=== PATIENT | female | born 1940 | race Caucasian/White ===

== ENCOUNTER 2021-09-18 17:43 | Emergency (ER) | payer OTHER ==
[~2021-09-18] VITALS: Ht 175.3 cm; Wt 68.0 kg
[2021-09-18 20:05] LABS: Basophils # (auto) 0 10 ^3/uL (0-0.2); Basophils % (auto) 0.4 % (0.0-2.0); Eosinophils # (auto) 0 10 ^3/uL (0-0.8); Eosinophils % (auto) 0.6 % (0.0-7.0); Hematocrit 36.2 % (36.0-46.0); Hemoglobin 12.2 g/dL (12.2-16.2); Lymphocytes # (auto) 1.7 10 ^3/uL (0.4-5.4); Lymphocytes % (auto) 26.7 % (10.0-50.0); Mean Corpuscular Hemoglobin 28.1 pg (28.0-32.0); Mean Corpuscular Hgb Conc. 33.8 g/dL (32.0-36.0); Mean Corpuscular Volume 83.3 fL (80.0-100.0); Monocytes # (auto) 0.3 10 ^3/uL (0-1.3); Monocytes % (auto) 5.5 % (0.0-12.0); Neutrophils # (auto) 4.2 10 ^3/uL (1.6-8.6); Neutrophils % (auto) 66.8 % (37.0-80.0); Nucleated Red Blood Cells % 0.1 %; Red Blood Cells 4.35 10^6/uL (4.0-5.20); Red Cell Distribution Width 13.9 % (11.8-14.3); White Blood Cell 6.3 10^3/uL (4.4-10.8)
[2021-09-18 20:19] LABS: Albumin 3.1 g/dL (3.4-5.0); Calcium 8.8 mg/dL (8.5-10.1); Potassium 3.6 mmol/L (3.5-5.1)
[2021-09-18 20:23] LABS: Bilirubin, Total 0.6 mg/dL (0.2-1.0); Total Protein 7.4 g/dL (6.4-8.2)
[2021-09-18] MEDS ORDERED: LIDOCAINE 5% TOPICAL PATCH TOP ONE (21:30)
[2021-09-18 22:28] LABS: Urine Bacteria NONE SEEN /hpf (None Seen); Urine Blood Negative /uL (Negative); Urine Mucus FEW (None Seen); Urine WBC <1 /hpf (0 - 5)
[2021-09-18] MEDS ORDERED: IOHEXOL 300 MG/ML 100ML BOTTLE IJ ONE (23:39)
[2021-09-19] MEDS ORDERED: ONDA-144 PO (00:37)
[2021-09-19 01:00] VITALS: BP 165/90
== END 2021-09-19 02:40 | disposition home or self-care (01) ==
LOC: ER 17:43
DX: S42.301A Unspecified fracture of shaft of humerus, right arm, initial encounter for closed fracture (principal); R11.2 Nausea with vomiting, unspecified; Z20.822 Contact with and (suspected) exposure to COVID-19; W18.39XA Other fall on same level, initial encounter; Y93.89 Activity, other specified; Y92.89 Other specified places as the place of occurrence of the external cause; Y99.8 Other external cause status
CPT/HCPCS: 36415; 73030; 74177; 80053; 81001; 84484; 85025; 87426; 93005; 99285; Q9967

== ENCOUNTER 2023-02-21 15:01 | Emergency (ER) | payer OTHER, MEDICAID ==
[~2023-02-21] VITALS: Ht 175.3 cm; Wt 64.9 kg
[~2023-02-21 15:01] MED LIST: ONDA-144 PO
[2023-02-21 18:48] VITALS: PULSE 72; RESP 18; TEMP 98.5; O2SAT 96
[2023-02-21 19:42] VITALS: BP 182/79
[2023-02-21 20:12] VITALS: PULSE 59; RESP 15; O2SAT 97
== END 2023-02-21 19:38 | disposition home or self-care (01) ==
LOC: ER 15:01
DX: T82.594A Other mechanical complication of infusion catheter, initial encounter (principal); I10 Essential (primary) hypertension; E11.9 Type 2 diabetes mellitus without complications; Z79.899 Other long term (current) drug therapy

== ENCOUNTER 2024-01-18 14:32 | Inpatient (IN) | payer OTHER, MEDICAID ==
[~2024-01-18] VITALS: Ht 175.3 cm; Wt 66.4 kg
[2024-01-18 16:05] VITALS: PULSE 81; RESP 12; O2SAT 90
[2024-01-18 16:18] LABS: Urine Bacteria None Seen /hpf (None Seen)
[2024-01-18 16:24] LABS: Basophils # (auto) 0.1 10 ^3/uL (0-0.2); Basophils % (auto) 0.6 % (0.0-2.0); Eosinophils # (auto) 0 10 ^3/uL (0-0.8); Eosinophils % (auto) 0.3 % (0.0-7.0); Hematocrit 40.6 % (36.0-46.0); Hemoglobin 13.6 g/dL (12.2-16.2); Lymphocytes # (auto) 1.2 10 ^3/uL (0.4-5.4); Lymphocytes % (auto) 11.3 % (10.0-50.0); Mean Corpuscular Hemoglobin 30.1 pg (28.0-32.0); Mean Corpuscular Hgb Conc. 33.5 g/dL (32.0-36.0); Mean Corpuscular Volume 89.9 fL (80.0-100.0); Monocytes # (auto) 0.3 10 ^3/uL (0-1.3); Monocytes % (auto) 2.4 % (0.0-12.0); Neutrophils # (auto) 9.2 10 ^3/uL (1.6-8.6); Neutrophils % (auto) 85.4 % (37.0-80.0); Nucleated Red Blood Cells % 0.1 %; Platelet Count (auto) 145 10^3/uL (140-450); Red Blood Cells 4.52 10^6/uL (4.0-5.20); Red Cell Distribution Width 13.5 % (11.8-14.3); White Blood Cell 10.8 10^3/uL (4.4-10.8)
[2024-01-18 16:25] LABS: Urine Blood 2+ /uL (Negative); Urine Clarity Clear (Clear); Urine Color Light-Yellow (Yellow); Urine Protein, UAD TRACE (Negative); Urine Specific Gravity 1.013 (1.001-1.035); Urine Urobilinogen Normal (Negative); Urine WBC 18 /hpf (0 - 5); Urine pH 5.5 (5.0-9.0)
[2024-01-18 16:47] LABS: Alanine Aminotransferase 21 U/L (7-40); Albumin 3.3 g/dL (3.2-4.8); Alkaline Phosphatase 84 U/L (46-116); Anion Gap 4 (5-15); Aspartate Aminotransferase 22 U/L (13-40); BUN/Creatinine Ratio 19.3 (10.0-20.0); Bilirubin, Total 0.7 mg/dL (0.2-1.0); Blood Urea Nitrogen 16 mg/dL (9-23); Calcium 8.7 mg/dL (8.7-10.4); Carbon Dioxide 24 mmol/L (20-30); Chloride 108 mmol/L (98-107); Glucose 189 mg/dL (74-106); Potassium 3.8 mmol/L (3.5-5.1); Sodium 136 mmol/L (136-145)
[2024-01-18] MEDS: cefTRIAXone 1GM/50ML D5W 50 ML IV ONE (19:24)
[2024-01-18 19:30] VITALS: PULSE 72; RESP 18; O2SAT 95
[2024-01-18 19:45] LABS: INR 1.03 (0.9-1.15); Partial Thromboplastin Time 22.8 SEC (24.5-34.5); Prothrombin Time 10.9 sec (9.3-11.8)
[2024-01-18] MEDS: ONDANSETRON HCL 4 MG/2 ML VIAL IV ONE (20:29)
[2024-01-18] MEDS: MORPHINE SULFATE INJ 2 MG/ml SYRG IV ONE (20:30)
[2024-01-18] MEDS ORDERED: ONDANSETRON HCL 4 MG/2 ML VIAL IV PRN (21:30)
[2024-01-18] MEDS ORDERED: DEXTROSE (50%) 50ML SYRG IV PRN (21:30)
[2024-01-18] MEDS ORDERED: ACETAMINOPHEN 325 MG TAB PO PRN (21:30)
[2024-01-18] MEDS: SODIUM CHLORIDE 0.9% 1,000 ML IV SCH (21:45)
[2024-01-18] MEDS: diphenhdrAMINE HCL 50 MG/1 ML VL IV PRN (22:13)
[2024-01-18] MEDS ORDERED: NITROGLYCERIN 0.4 MG SL TAB SL PRN (22:15)
[2024-01-18] MEDS ORDERED: MORPHINE SULFATE INJ 2 MG/ml SYRG IV PRN (22:15)
[2024-01-19] VITALS (18 sets, daily range): BP systolic 117–159; BP diastolic 50–91; PULSE 60–100; RESP 15–20; TEMP 98–100.3; O2SAT 66–100
[2024-01-19] MEDS: InsuLIN REG 1unit/0.01ml Soln (100units/ml) SC SCH (00:09)
[2024-01-19] MEDS: ACCU-CHEK COMFORT CURVE STRIP VI SCH (00:11)
[2024-01-19] MEDS: HYDROcodone-ACET 5/325MG TAB PO PRN (00:30)
[2024-01-19 04:57] LABS: Basophils # (auto) 0 10 ^3/uL (0-0.2); Basophils % (auto) 0.3 % (0.0-2.0); Eosinophils # (auto) 0.1 10 ^3/uL (0-0.8); Eosinophils % (auto) 1.5 % (0.0-7.0); Hematocrit 38.4 % (36.0-46.0); Hemoglobin 13.1 g/dL (12.2-16.2); Lymphocytes # (auto) 0.7 10 ^3/uL (0.4-5.4); Lymphocytes % (auto) 9.2 % (10.0-50.0); Mean Corpuscular Hemoglobin 31.1 pg (28.0-32.0); Mean Corpuscular Hgb Conc. 34.2 g/dL (32.0-36.0); Monocytes # (auto) 0.2 10 ^3/uL (0-1.3); Monocytes % (auto) 2.1 % (0.0-12.0); Neutrophils % (auto) 86.9 % (37.0-80.0); Platelet Count (auto) 139 10^3/uL (140-450); Red Blood Cells 4.23 10^6/uL (4.0-5.20); Red Cell Distribution Width 13.9 % (11.8-14.3)
[2024-01-19 05:23] LABS: Alanine Aminotransferase 16 U/L (7-40); Albumin 3.1 g/dL (3.2-4.8); Alkaline Phosphatase 74 U/L (46-116); Anion Gap 5 (5-15); Aspartate Aminotransferase 17 U/L (13-40); BUN/Creatinine Ratio 17.3 (10.0-20.0); Blood Urea Nitrogen 14 mg/dL (9-23); Calcium 8.6 mg/dL (8.7-10.4); Carbon Dioxide 25 mmol/L (20-30); Chloride 109 mmol/L (98-107); Glucose 137 mg/dL (74-106); Potassium 4.1 mmol/L (3.5-5.1); Sodium 139 mmol/L (136-145)
[2024-01-19 05:24] LABS: Bilirubin, Total 0.7 mg/dL (0.2-1.0); Total Protein 5.7 g/dL (5.7-8.2)
[2024-01-19] MEDS: cefTRIAXone 1GM/50ML D5W 50 ML IV SCH (09:00)
[2024-01-19] MEDS: ENOXAPARIN SOD 40 MG/0.4 ML SYRINGE SC SCH (09:04)
[2024-01-19] MEDS: BUPIVACAINE 0.5% P/F INJ 10 ML VIAL ONE (09:11)
[2024-01-19] MEDS ORDERED: fentaNYL CITRATE 100 MCG/2 ML VL ONE (09:14)
[2024-01-19] MEDS ORDERED: MIDAZOLAM HCL 2MG/2ML 2ml VIAL (1mg/ml) ONE (09:14)
[2024-01-19] MEDS ORDERED: PROPOFOL 10 MG/ML 20 ML IV ONE (09:14)
[2024-01-19] MEDS ORDERED: ONDANSETRON HCL 4 MG/2 ML VIAL ONE (09:14)
[2024-01-19] MEDS ORDERED: ePHEDrine SULFATE 50 MG/ML AMP ONE (09:14)
[2024-01-19] MEDS ORDERED: GLYCOPYRROLATE 0.2 MG/ML 1ML VIAL ONE (09:14)
[2024-01-19] MEDS ORDERED: MORPHINE SULF PF 5 MG/10 ML VIAL ONE (09:14)
[2024-01-19] MEDS ORDERED: KETAMINE 50mg/ML 1ml syringe ONE (09:14)
[2024-01-19] MEDS: ceFAZolin 2 GM/D5W50ml 50 ML IV ONE (10:27)
[2024-01-19] MEDS: BUPIVACAINE 0.25% INJ 50ML VIAL ONE (10:27)
[2024-01-19] MEDS ORDERED: NALOXONE HCL 0.4 MG/ML VIAL IV PRN (11:45)
[2024-01-19] MEDS ORDERED: DexAMETHasone SOD PHOS 10MG/1ML VIAL INJ IV PRN (11:45)
[2024-01-19] MEDS: ACCU-CHEK COMFORT CURVE STRIP VI ONE (11:45)
[2024-01-19] MEDS ORDERED: diphenhdrAMINE HCL 50 MG/1 ML VL IV PRN (11:45)
[2024-01-19] MEDS: ceFAZolin 1GM/50ML 50 ML IV SCH (14:00)
[2024-01-19] MEDS ORDERED: ATOR-507 PO (17:56)
[2024-01-19] MEDS ORDERED: DONE1TAB88 PO (17:56)
[2024-01-19] MEDS ORDERED: AMLO1TAB22 PO (17:56)
[2024-01-19] MEDS ORDERED: MEMA1TAB5 PO (17:56)
[2024-01-19] MEDS ORDERED: LISI10TA34 PO (17:56)
[2024-01-19] MEDS ORDERED: SERT-206 PO (17:56)
[2024-01-19] MEDS ORDERED: INS7030I SC (17:56)
[2024-01-20] VITALS (26 sets, daily range): BP systolic 102–163; BP diastolic 51–77; PULSE 59–74; RESP 15–22; TEMP 98.1–98.8; O2SAT 70–98
[2024-01-20 04:52] LABS: Basophils # (auto) 0 10 ^3/uL (0-0.2); Basophils % (auto) 0.5 % (0.0-2.0); Eosinophils # (auto) 0.2 10 ^3/uL (0-0.8); Eosinophils % (auto) 3.1 % (0.0-7.0); Hematocrit 34.9 % (36.0-46.0); Hemoglobin 11.8 g/dL (12.2-16.2); Lymphocytes # (auto) 0.7 10 ^3/uL (0.4-5.4); Lymphocytes % (auto) 14.3 % (10.0-50.0); Mean Corpuscular Hemoglobin 30.4 pg (28.0-32.0); Mean Corpuscular Hgb Conc. 33.9 g/dL (32.0-36.0); Mean Corpuscular Volume 89.9 fL (80.0-100.0); Monocytes # (auto) 0.2 10 ^3/uL (0-1.3); Monocytes % (auto) 4.2 % (0.0-12.0); Neutrophils % (auto) 77.9 % (37.0-80.0); Nucleated Red Blood Cells % 0.1 %; Platelet Count (auto) 96 10^3/uL (140-450); Red Blood Cells 3.89 10^6/uL (4.0-5.20); Red Cell Distribution Width 14.1 % (11.8-14.3); White Blood Cell 5.1 10^3/uL (4.4-10.8)
[2024-01-20 05:09] LABS: Alanine Aminotransferase 9 U/L (7-40); Albumin 2.8 g/dL (3.2-4.8); Alkaline Phosphatase 64 U/L (46-116); Anion Gap 3 (5-15); Aspartate Aminotransferase 12 U/L (13-40); BUN/Creatinine Ratio 13.8 (10.0-20.0); Blood Urea Nitrogen 11 mg/dL (9-23); Calcium 8.5 mg/dL (8.7-10.4); Carbon Dioxide 26 mmol/L (20-30); Chloride 108 mmol/L (98-107); Glucose 136 mg/dL (74-106); Magnesium 1.8 mg/dL (1.6-2.6); Potassium 3.9 mmol/L (3.5-5.1); Sodium 137 mmol/L (136-145)
[2024-01-20 05:10] LABS: Bilirubin, Total 0.4 mg/dL (0.2-1.0); Total Protein 5.2 g/dL (5.7-8.2)
[2024-01-20] MEDS: KETOROLAC TROMETH 30 MG/ML 1ML VIAL IV PRN (09:36)
[2024-01-20] MEDS: ONDANSETRON HCL 4 MG/2 ML VIAL IV PRN (18:30)
[2024-01-21] VITALS (8 sets, daily range): BP systolic 146–172; BP diastolic 48–92; PULSE 65–88; RESP 17–22; TEMP 98.2–98.7; O2SAT 90–99
[2024-01-21] MEDS: PANTOPRAZOLE 40 MG TAB PO SCH (06:33)
[2024-01-21 07:25] LABS: Basophils # (auto) 0 10 ^3/uL (0-0.2); Basophils % (auto) 0.6 % (0.0-2.0); Eosinophils # (auto) 0.2 10 ^3/uL (0-0.8); Eosinophils % (auto) 4.4 % (0.0-7.0); Hematocrit 34.2 % (36.0-46.0); Hemoglobin 11.6 g/dL (12.2-16.2); Lymphocytes # (auto) 0.6 10 ^3/uL (0.4-5.4); Lymphocytes % (auto) 12.4 % (10.0-50.0); Mean Corpuscular Hemoglobin 30.8 pg (28.0-32.0); Mean Corpuscular Volume 90.7 fL (80.0-100.0); Monocytes # (auto) 0.2 10 ^3/uL (0-1.3); Monocytes % (auto) 4.2 % (0.0-12.0); Neutrophils % (auto) 78.4 % (37.0-80.0); Nucleated Red Blood Cells % 0.1 %; Platelet Count (auto) 87 10^3/uL (140-450); Red Blood Cells 3.77 10^6/uL (4.0-5.20); Red Cell Distribution Width 13.7 % (11.8-14.3); White Blood Cell 5.1 10^3/uL (4.4-10.8)
[2024-01-21 07:50] LABS: Anion Gap 6 (5-15); Aspartate Aminotransferase 14 U/L (13-40); BUN/Creatinine Ratio 15.9 (10.0-20.0); Blood Urea Nitrogen 11 mg/dL (9-23); Calcium 8.6 mg/dL (8.7-10.4); Carbon Dioxide 25 mmol/L (20-30); Chloride 106 mmol/L (98-107); Glucose 154 mg/dL (74-106); Magnesium 1.8 mg/dL (1.6-2.6); Potassium 3.7 mmol/L (3.5-5.1); Sodium 137 mmol/L (136-145)
[2024-01-21 07:51] LABS: Bilirubin, Total 0.6 mg/dL (0.2-1.0); Total Protein 5.4 g/dL (5.7-8.2)
[2024-01-21 07:52] LABS: Alanine Aminotransferase < 9 U/L (7-40)
[2024-01-21 08:00] LABS: Alkaline Phosphatase 66 U/L (46-116)
[2024-01-21] MEDS: ENOXAPARIN SOD 30 MG/0.3 ML SYRINGE SC SCH (09:11)
[2024-01-21] MEDS: LISINOPRIL 5 MG TAB PO ONE (14:35)
[2024-01-21] MEDS: amLODIPine BESYLATE 5 MG TAB PO ONE (14:36)
[2024-01-21] MEDS: ATORVASTATIN 20 MG TAB PO SCH (21:26)
[2024-01-21] MEDS: MEMANTINE HCL 5 MG TAB PO SCH (21:26)
[2024-01-21] MEDS: DONEPEZIL HYDROCHLORIDE 5 MG TAB PO SCH (21:26)
[2024-01-22] VITALS (7 sets, daily range): BP systolic 145–156; BP diastolic 55–71; PULSE 54–84; RESP 14–20; TEMP 97.8–98.7; O2SAT 95–99
[2024-01-22] MEDS: DOCUSATE SOD 100 MG CAP PO PRN (05:49)
[2024-01-22] MEDS: amLODIPine BESYLATE 5 MG TAB PO SCH (12:25)
[2024-01-22] MEDS: SERTRALINE HCL 50 MG TAB PO SCH (12:26)
[2024-01-22] MEDS: LISINOPRIL 5 MG TAB PO SCH (12:26)
[2024-01-23] VITALS (7 sets, daily range): BP systolic 134–158; BP diastolic 60–74; PULSE 64–74; RESP 16–18; TEMP 97.7–98.1; O2SAT 98–99
[2024-01-24] VITALS (9 sets, daily range): BP systolic 138–163; BP diastolic 62–70; PULSE 63–90; RESP 16–20; TEMP 97.9–98.3; O2SAT 97–99
[2024-01-24] MEDS ORDERED: HYDR1TAB97 PO (10:48)
[2024-01-24] MEDS ORDERED: NITR-87 PO (10:48)
[2024-01-24] MEDS: NITROFURANTOIN 100 mg CAP PO ONE (11:06)
[2024-01-24] MEDS: NITROFURANTOIN 100 mg CAP PO SCH (21:24)
[2024-01-25] VITALS (9 sets, daily range): BP systolic 141–169; BP diastolic 53–68; PULSE 60–79; RESP 15–20; TEMP 97.2–98.7; O2SAT 94–100
[2024-01-25] MEDS ORDERED: ENOX30IN5 SC (20:40)
[2024-01-26] VITALS (9 sets, daily range): BP systolic 111–153; BP diastolic 52–74; PULSE 60–96; RESP 14–18; TEMP 96–99; O2SAT 94–100
[2024-01-26 11:21] LABS: Basophils # (auto) 0 10 ^3/uL (0-0.2); Basophils % (auto) 0.8 % (0.0-2.0); Eosinophils # (auto) 0.2 10 ^3/uL (0-0.8); Eosinophils % (auto) 3.3 % (0.0-7.0); Hematocrit 33.4 % (36.0-46.0); Hemoglobin 11.6 g/dL (12.2-16.2); Lymphocytes # (auto) 1.4 10 ^3/uL (0.4-5.4); Lymphocytes % (auto) 26.8 % (10.0-50.0); Mean Corpuscular Hgb Conc. 34.8 g/dL (32.0-36.0); Mean Corpuscular Volume 89.2 fL (80.0-100.0); Monocytes # (auto) 0.4 10 ^3/uL (0-1.3); Neutrophils # (auto) 3.3 10 ^3/uL (1.6-8.6); Neutrophils % (auto) 62.1 % (37.0-80.0); Nucleated Red Blood Cells % 0.1 %; Platelet Count (auto) 235 10^3/uL (140-450); Red Blood Cells 3.74 10^6/uL (4.0-5.20); Red Cell Distribution Width 13.3 % (11.8-14.3); White Blood Cell 5.4 10^3/uL (4.4-10.8)
[2024-01-26 11:59] LABS: Alanine Aminotransferase 19 U/L (7-40); Albumin 3.2 g/dL (3.2-4.8); Alkaline Phosphatase 86 U/L (46-116); Aspartate Aminotransferase 25 U/L (13-40); BUN/Creatinine Ratio 16.9 (10.0-20.0); Bilirubin, Total 0.5 mg/dL (0.2-1.0); Blood Urea Nitrogen 12 mg/dL (9-23); Calcium 9.1 mg/dL (8.7-10.4); Glucose 187 mg/dL (74-106); Magnesium 1.8 mg/dL (1.6-2.6); Total Protein 6.2 g/dL (5.7-8.2)
[2024-01-26] MEDS: amLODIPine BESYLATE 5 MG TAB PO SCH (12:26)
[2024-01-26] MEDS: LISINOPRIL 5 MG TAB PO SCH (12:27)
[2024-01-26 12:30] LABS: Chloride 102 mmol/L (98-107)
[2024-01-26 12:31] LABS: Sodium 134 mmol/L (136-145)
[2024-01-26 12:33] LABS: Anion Gap 3 (5-15); Carbon Dioxide 29 mmol/L (20-30)
[2024-01-27 07:23] VITALS: BP 128/59; PULSE 86; RESP 16; TEMP 98.3; O2SAT 96
== END 2024-01-26 20:30 | disposition home health service (06) | DRG 481 ==
LOC: EDBD 14:32 → EDUNIT# 14:32 → ER 14:32 → TELE 22:10 → TELE-WESTW 01-19 01:48 → TELE-EAST 01-25 21:35 → EAST 01-25 21:53
PROVIDERS: ADMIT Nurse Practitioner Family; ATTEND Internal Medicine Geriatric Medicine
PROC: 0QS704Z Reposition Left Upper Femur with Internal Fixation Device, Open Approach (ICD-10-PCS; principal; 2024-01-19 10:27)
DX: S72.142A Displaced intertrochanteric fracture of left femur, initial encounter for closed fracture (principal); N39.0 Urinary tract infection, site not specified; I10 Essential (primary) hypertension; K57.30 Diverticulosis of large intestine without perforation or abscess without bleeding; F03.90 Unspecified dementia, unspecified severity, without behavioral disturbance, psychotic disturbance, mood disturbance, and anxiety; E11.9 Type 2 diabetes mellitus without complications; S72.012A Unspecified intracapsular fracture of left femur, initial encounter for closed fracture; W18.39XA Other fall on same level, initial encounter; Y93.89 Activity, other specified; Y92.89 Other specified places as the place of occurrence of the external cause; Y99.8 Other external cause status
CPT/HCPCS: 36415; 70450; 71045; 72170; 73502; 74176; 76000; 80053; 81001; 82962; 83690; 83735; 84484; 85025; 85610; 85730; 86850; 86900; 86901; 87086; 87088; 87186; 93005; 93306; 96365; 96375; 97110; 97116; 97163; 97530; G0378; J1815; J1885; J2250; J2405; J2704; J3490

== ENCOUNTER 2024-01-30 17:18 | Inpatient (IN) | payer OTHER, MEDICAID ==
[~2024-01-30] VITALS: Ht 165.1 cm; Wt 69.7 kg
[~2024-01-30 17:18] MED LIST changes: +AMLO1TAB22 PO; +ATOR-507 PO; +DONE1TAB88 PO; +ENOX30IN5 SC; +HYDR1TAB97 PO; +INS7030I SC; +LISI10TA34 PO; +MEMA1TAB5 PO; +NITR-87 PO; -ONDA-144 PO; +SERT-206 PO
[2024-01-30 18:25] LABS: Basophils # (auto) 0.1 10 ^3/uL (0-0.2); Basophils % (auto) 0.9 % (0.0-2.0); Eosinophils # (auto) 0.1 10 ^3/uL (0-0.8); Eosinophils % (auto) 2.1 % (0.0-7.0); Hematocrit 32.9 % (36.0-46.0); Hemoglobin 11.4 g/dL (12.2-16.2); Lymphocytes # (auto) 1.5 10 ^3/uL (0.4-5.4); Lymphocytes % (auto) 22.6 % (10.0-50.0); Mean Corpuscular Hemoglobin 30.5 pg (28.0-32.0); Mean Corpuscular Hgb Conc. 34.5 g/dL (32.0-36.0); Mean Corpuscular Volume 88.2 fL (80.0-100.0); Monocytes # (auto) 0.3 10 ^3/uL (0-1.3); Monocytes % (auto) 4.8 % (0.0-12.0); Neutrophils # (auto) 4.7 10 ^3/uL (1.6-8.6); Neutrophils % (auto) 69.6 % (37.0-80.0); Nucleated Red Blood Cells % 0.1 %; Platelet Count (auto) 337 10^3/uL (140-450); Red Blood Cells 3.73 10^6/uL (4.0-5.20); Red Cell Distribution Width 13.5 % (11.8-14.3); White Blood Cell 6.7 10^3/uL (4.4-10.8)
[2024-01-30 18:39] LABS: Alanine Aminotransferase 26 U/L (7-40); Albumin 3.3 g/dL (3.2-4.8); Alkaline Phosphatase 98 U/L (46-116); Anion Gap 8 (5-15); Aspartate Aminotransferase 23 U/L (13-40); BUN/Creatinine Ratio 18.7 (10.0-20.0); Blood Urea Nitrogen 14 mg/dL (9-23); Calcium 8.7 mg/dL (8.7-10.4); Carbon Dioxide 22 mmol/L (20-30); Chloride 106 mmol/L (98-107); Glucose 211 mg/dL (74-106); Potassium 4.1 mmol/L (3.5-5.1); Sodium 136 mmol/L (136-145)
[2024-01-30 18:40] LABS: Bilirubin, Total 0.4 mg/dL (0.2-1.0)
[2024-01-30 18:42] LABS: Urine Bacteria None Seen /hpf (None Seen)
[2024-01-30 18:46] VITALS: PULSE 67; RESP 20; O2SAT 96
[2024-01-30] MEDS ORDERED: DEXTROSE (50%) 50ML SYRG IV PRN (19:00)
[2024-01-30] MEDS ORDERED: DOCUSATE SOD 100 MG CAP PO PRN (19:00)
[2024-01-30] MEDS ORDERED: ONDANSETRON HCL 4 MG/2 ML VIAL IV PRN (19:00)
[2024-01-30] MEDS ORDERED: hydrALAZINE HCL 20 MG/ML VL IV PRN (19:00)
[2024-01-30] MEDS: MORPHINE SULFATE 4 MG/ML SYR/VIAL IV ONE (19:04)
[2024-01-30] MEDS: ONDANSETRON HCL 4 MG/2 ML VIAL IV ONE (19:05)
[2024-01-30] MEDS: SODIUM CHLORIDE 0.9% 1,000 ML IV SCH (19:14)
[2024-01-30 19:21] LABS: Urine Blood 3+ /uL (Negative); Urine Clarity Clear (Clear); Urine Color Yellow (Yellow); Urine Protein, UAD TRACE (Negative); Urine Specific Gravity 1.012 (1.001-1.035); Urine Urobilinogen Normal (Negative); Urine WBC 7 /hpf (0 - 5)
[2024-01-30] MEDS ORDERED: NITROGLYCERIN 0.4 MG SL TAB SL PRN (19:45)
[2024-01-30] MEDS ORDERED: MORPHINE SULFATE INJ 2 MG/ml SYRG IV PRN (19:45)
[2024-01-30] MEDS: ATORVASTATIN 20 MG TAB PO SCH (22:35)
[2024-01-30] MEDS: DONEPEZIL HYDROCHLORIDE 5 MG TAB PO SCH (22:35)
[2024-01-30] MEDS: HYDROcodone-ACET 5/325MG TAB PO PRN (22:35)
[2024-01-30] MEDS: InsuLIN REG 1unit/0.01ml Soln (100units/ml) SC SCH (22:48)
[2024-01-30] MEDS: ACCU-CHEK COMFORT CURVE STRIP VI SCH (22:57)
[2024-01-31] VITALS (9 sets, daily range): BP systolic 116–140; BP diastolic 49–60; PULSE 59–77; RESP 18–22; TEMP 97.9–98.4; O2SAT 94–98
[2024-01-31] MEDS ORDERED: NITR100C6 PO (02:35)
[2024-01-31] MEDS ORDERED: SERT-289 PO (02:35)
[2024-01-31] MEDS ORDERED: AMLO1TAB23 PO (02:35)
[2024-01-31] MEDS ORDERED: NITR1CAP36 PO (02:35)
[2024-01-31] MEDS ORDERED: ATOR40TA52 PO (02:35)
[2024-01-31] MEDS: InsuLIN REG 1unit/0.01ml Soln (100units/ml) SC SCH (06:29)
[2024-01-31 06:46] LABS: Alanine Aminotransferase 25 U/L (7-40); Albumin 3.1 g/dL (3.2-4.8); Alkaline Phosphatase 91 U/L (46-116); Anion Gap 7 (5-15); Aspartate Aminotransferase 23 U/L (13-40); BUN/Creatinine Ratio 19.4 (10.0-20.0); Blood Urea Nitrogen 13 mg/dL (9-23); Calcium 8.7 mg/dL (8.7-10.4); Carbon Dioxide 25 mmol/L (20-30); Chloride 107 mmol/L (98-107); Glucose 149 mg/dL (74-106); Sodium 139 mmol/L (136-145)
[2024-01-31 06:47] LABS: Bilirubin, Total 0.4 mg/dL (0.2-1.0); Total Protein 5.7 g/dL (5.7-8.2)
[2024-01-31 07:11] LABS: Basophils # (auto) 0.1 10 ^3/uL (0-0.2); Basophils % (auto) 0.8 % (0.0-2.0); Eosinophils # (auto) 0.2 10 ^3/uL (0-0.8); Eosinophils % (auto) 3.4 % (0.0-7.0); Hematocrit 31.4 % (36.0-46.0); Hemoglobin 11.1 g/dL (12.2-16.2); Lymphocytes # (auto) 1.7 10 ^3/uL (0.4-5.4); Mean Corpuscular Hemoglobin 31.5 pg (28.0-32.0); Mean Corpuscular Hgb Conc. 35.3 g/dL (32.0-36.0); Mean Corpuscular Volume 89.2 fL (80.0-100.0); Monocytes # (auto) 0.3 10 ^3/uL (0-1.3); Monocytes % (auto) 5.4 % (0.0-12.0); Neutrophils # (auto) 4.1 10 ^3/uL (1.6-8.6); Neutrophils % (auto) 64.4 % (37.0-80.0); Platelet Count (auto) 336 10^3/uL (140-450); Red Blood Cells 3.52 10^6/uL (4.0-5.20); Red Cell Distribution Width 13.6 % (11.8-14.3); White Blood Cell 6.4 10^3/uL (4.4-10.8)
[2024-01-31] MEDS: MEMANTINE HCL 5 MG TAB PO SCH (09:58)
[2024-01-31] MEDS: amLODIPine BESYLATE 5 MG TAB PO SCH (09:59)
[2024-01-31] MEDS: ASPirin 81 mg TAB PO SCH (09:59)
[2024-01-31] MEDS ORDERED: NITR50CA24 PO (13:22)
[2024-01-31] MEDS: ACETAMINOPHEN 325 MG TAB PO PRN (21:47)
[2024-02-01] VITALS (7 sets, daily range): BP systolic 126–155; BP diastolic 47–57; PULSE 64–74; RESP 16–21; TEMP 97.5–98.4; O2SAT 90–97
[2024-02-02] VITALS (8 sets, daily range): BP systolic 130–156; BP diastolic 45–63; PULSE 55–80; RESP 14–20; TEMP 97.7–98.6; O2SAT 63–98
[2024-02-03] VITALS (8 sets, daily range): BP systolic 122–156; BP diastolic 45–73; PULSE 52–69; RESP 12–21; TEMP 98.2–98.3; O2SAT 95–99
[2024-02-04] VITALS (8 sets, daily range): BP systolic 127–156; BP diastolic 52–63; PULSE 56–98; RESP 14–18; TEMP 98–98.7; O2SAT 93–99
[2024-02-04 14:53] LABS: Basophils # (auto) 0.1 10 ^3/uL (0-0.2); Basophils % (auto) 0.6 % (0.0-2.0); Eosinophils # (auto) 0.1 10 ^3/uL (0-0.8); Eosinophils % (auto) 1.4 % (0.0-7.0); Hematocrit 33.6 % (36.0-46.0); Hemoglobin 11.6 g/dL (12.2-16.2); Lymphocytes # (auto) 1.7 10 ^3/uL (0.4-5.4); Mean Corpuscular Hemoglobin 30.7 pg (28.0-32.0); Mean Corpuscular Hgb Conc. 34.5 g/dL (32.0-36.0); Mean Corpuscular Volume 89.2 fL (80.0-100.0); Monocytes # (auto) 0.4 10 ^3/uL (0-1.3); Monocytes % (auto) 4.3 % (0.0-12.0); Neutrophils # (auto) 6.3 10 ^3/uL (1.6-8.6); Neutrophils % (auto) 73.7 % (37.0-80.0); Platelet Count (auto) 442 10^3/uL (140-450); Red Blood Cells 3.77 10^6/uL (4.0-5.20); Red Cell Distribution Width 13.9 % (11.8-14.3); White Blood Cell 8.6 10^3/uL (4.4-10.8)
[2024-02-04 15:13] LABS: Alanine Aminotransferase 19 U/L (7-40); Albumin 3.4 g/dL (3.2-4.8); Alkaline Phosphatase 113 U/L (46-116); Anion Gap 10 (5-15); Aspartate Aminotransferase 16 U/L (13-40); Blood Urea Nitrogen 20 mg/dL (9-23); Carbon Dioxide 23 mmol/L (20-30); Chloride 103 mmol/L (98-107); Glucose 213 mg/dL (74-106); Sodium 136 mmol/L (136-145)
[2024-02-04 15:14] LABS: Bilirubin, Total 0.3 mg/dL (0.2-1.0); Total Protein 6.2 g/dL (5.7-8.2)
[2024-02-04] MEDS: hydrOXYzine 25 MG TAB or CAP PO PRN (21:10)
[2024-02-05 01:00] VITALS: BP 154/73; PULSE 66; RESP 18; TEMP 98.6; O2SAT 98
[2024-02-05 05:00] VITALS: BP 141/64; PULSE 58; RESP 18; TEMP 97.9; O2SAT 97
[2024-02-05 08:00] VITALS: PULSE 55; PULSE 62; RESP 16; O2SAT 95
[2024-02-05 09:00] VITALS: BP 150/66; PULSE 78; RESP 18; TEMP 98.4; O2SAT 97
[2024-02-05 13:00] VITALS: BP 116/49; PULSE 64; RESP 22; TEMP 98.2; O2SAT 98
[2024-02-05 17:00] VITALS: BP 135/62; PULSE 58; RESP 18; TEMP 98.2; O2SAT 98
== END 2024-02-05 17:00 | DRG 948 ==
LOC: ER 17:18 → EDBD 17:18 → TELE 19:33 → TELE-WESTW 19:33 → UNDODISIN 01-31 17:46 → TELE-WESTW 02-01 00:15
PROVIDERS: ADMIT Nurse Practitioner Family; ATTEND Internal Medicine Geriatric Medicine
DX: R53.1 Weakness (principal); E11.65 Type 2 diabetes mellitus with hyperglycemia; S72.002G Fracture of unspecified part of neck of left femur, subsequent encounter for closed fracture with delayed healing; I10 Essential (primary) hypertension; F03.90 Unspecified dementia, unspecified severity, without behavioral disturbance, psychotic disturbance, mood disturbance, and anxiety; Z79.4 Long term (current) use of insulin; Z79.899 Other long term (current) drug therapy
CPT/HCPCS: 36415; 80053; 81001; 82962; 85025; 87081; 87086; 97110; 97116; 97163; 97530; G0378; J1815; J2405

== ENCOUNTER 2024-07-31 10:18 | Emergency (ER) | payer OTHER, MEDICAID ==
[~2024-07-31] VITALS: Ht 175.3 cm; Wt 59.0 kg
[~2024-07-31 10:18] MED LIST changes: +AMLO1TAB23 PO; +ATOR40TA52 PO; +NITR100C6 PO; +NITR1CAP36 PO; +NITR50CA24 PO; +SERT-289 PO
--- NOTE | 2024-07-31 11:10 | ED.PDOC ---
History of Present Illness HPI Comments This is an 84-year-old female who comes in with chief complaint of needing a midline. The patient states that she had a midline placed and did accidentally came out. She is being treated with meropenem for a chronic UTI. She received approximately 2-1/2 days of IV antibiotics. The midline came out and then a visiting nurse came and placed a regular IV in but unfortunately that came out last night as well. The patient denies any fever or chills. She is accompanied in the emergency department's by her family member. She does have a history of chronic UTI is which she was receiving the infusion of antibiotics 3 times a day. Patient was rolled in a wheelchair and she is a poor historian. Chief Complaint: Tube Replacement Time Seen by MD: 10:54 Primary Care Provider: UNKNOWN NAME Reviewed Notes: Nurses Notes, Medications, Allergies (No allergies to medications) Allergies: Coded Allergies: NO KNOWN ALLERGIES (Unverified , 01/18/24) Home Meds Active Scripts Nitrofurantoin (Macrodantin) 50 Mg Cap, 1 CAP PO BID, #14 CAP Prov:MEEK MONIQUE MD 01/31/24 Enoxaparin Sodium (Enoxaparin Sodium) 30 Mg/0.3 Ml Inj, 30 MG SC DAILY for 21 Days, #21 INJ Prov:CLAUDIA ARCHIBALD MD 01/25/24 Hydrocodone-Acetaminophen (Hydrocodone/Acetaminophen 5-325 mg) 1 Tab Tab, 1 TAB PO Q6HP PRN, #20 TAB Prov:CLAUDIA ARCHIBALD MD 01/24/24 Nitrofurantoin Monohydrate Mac (Macrobid) 100 Mg Cap, 100 MG PO BID for 7 Days, #14 CAP Prov:CLAUDIA ARCHIBALD MD 01/24/24 Reported Medications Nitrofurantoin (Nitrofurantoin Macrocryst) 100 Mg Cap, 1 CAP PO BID 01/31/24 Amlodipine Besylate (Amlodipine Besylate) 10 Mg Tab, TAB PO 01/31/24 Atorvastatin Calcium (ATORVASTATIN CALCIUM) 40 Mg Tab, 1 TAB PO DAILY 01/31/24 Nitrofurantoin Monohyd Macro (Nitrofurantoin Monohydrat) 100 Mg Cap, 1 CAP PO BID 01/31/24 Sertraline HCl (Sertraline HCl) 50 Mg Tab, 1 TAB PO DAILY 01/31/24 Sertraline Hcl (Sertraline Hcl) 50 Mg Tab, 50 MG PO DAILY, MG 01/19/24 Lisinopril (Lisinopril) 10 Mg Tab, 10 MG PO DAILY, MG 01/19/24 Donepezil Hydrochloride (DONEPEZIL HCL) 10 Mg Tab, 10 MG PO DAILY, MG 01/19/24 Insulin Isophane & Reg (Human) (Humulin 70/30 (70-30) 100 Unit/ml) 1 Units/0.01 Ml Inj, 14 UNITS SC BIDAC, INJ INJECT 14 UNITS UNDER THE SKIN 2 TIMES DAILY (BEFORE MEALS) 01/19/24 Atorvastatin Calcium (Lipitor) 40 Mg Tab, 40 MG PO QPM, TAB 01/19/24 Amlodipine Besylate (Amlodipine Besylate) 5 Mg Tab, 5 MG PO DAILY, MG 01/19/24 Memantine Hydrochloride (Memantine HCl) 10 Mg Tab, 10 MG PO BID, TAB 01/19/24 Information Source: Relative Mode of Arrival: Wheelchair Severity: Moderate Timing: Days Duration: Since onset Prehospital treatment: None Location: Previous midline in the left arm Past Medical History PAST MEDICAL HISTORY: Cancer (Cancer of the cecum), Dementia, DM, High Lipids, HTN, UTI'S Surgical History: Hysterectomy Surgical History (Other): Colectomy, cataract surgery, right knee surgery, bilateral hip surgery CUTCH CLEANER History: No Pertinent CUTCH CLEANER History Family History Family History: Reviewed,noncontributory to illness Social History Smoker: Non-Smoker Alcohol: Denies ETOH Use Drugs: Denies Drug Use Lives In: Home Constitutional: denies: chills, diaphoresis, fatigue, fever, malaise, sweats, weakness, others EENTM: denies: blurred vision, double vision, ear bleeding, ear discharge, ear drainage, ear pain, ear ringing, eye pain, eye redness, hearing loss, mouth pain, mouth swelling, nasal discharge, nose bleeding, nose congestion, nose pain, photophobia, tearing, throat pain, throat swelling, voice changes, others Respiratory: denies: cough, hemoptysis, orthopnea, SOB at rest, shortness of breath, SOB with excertion, stridor, wheezing, others Cardiovascular: denies: chest pain, dizzy spells, diaphoresis, Dyspnea on exertion, edema, irregular heart beat, left arm pain, lightheadedness, palpitations, PND, syncope, others Gastrointestinal: denies: abdomen distended, abdominal pain, blood streaked bowels, constipated, diarrhea, dysphagia, difficulty swallowing, hematemesis, melena, nausea, poor appetite, poor fluid intake, rectal bleeding, rectal pain, vomiting, others Genitourinary: denies: abnormal vagina bleeding, burning, dyspareunia, dysuria, flank pain, frequency, hematuria, incontinence, pain, , vagina discharge, urgency, others Neurological: denies: dizziness, fainting, headache, left sided numbness, left sided weakness, numbness, paresthesia, pre-existing deficit, right sided numbness, right sided weakness, seizure, speech problems, tingling, tremors, weakness, others Musculoskeletal: denies: back pain, gout, joint pain, joint swelling, muscle pain, muscle stiffness, neck pain, others Integumetry: reports: others (Need of a midline); denies: bruises, change in color, change in hair/nails, dryness, laceration, lesions, lumps, rash, wounds Allergic/Immunocompromised: denies: Difficulty Healing, Frequent Infections, Hives, Itching, others Hematologic/Lymphatic: denies: anemia, blood clots, easy bleeding, easy bruising, swollen glands, others Endocrine: denies: excessive hunger, excessive sweating, excessive thirst, excessive urination, flushing, intolerance to cold, intolerance to heat, unexplained weight gain, unexplained weight loss, others Psychiatric: denies: anxiety, bipolar disorder, depression, hopeless, panic disorder, schizophrenia, sleepless, suicidal, others Physical Exam General Appearance: Mild Distress, Thin HEENT: Normal ENT Inspection, Pharynx Normal, TMs Normal Neck: Full Range of Motion, Non-Tender, Normal, Normal Inspection Respiratory: Chest Non-Tender, Lungs Clear, No Accessory Muscle Use, No Respiratory Distress, Normal Breath Sounds Cardiovascular: No Edema, No JVD, No Murmur, No Gallop, Normal Peripheral Pulses, Regular Rate/Rhythm Breast Exam: Deferred Gastrointestinal: No Organomegaly, Non Tender, No Pulsatile Mass, Normal Bowel Sounds, Soft Genitalia: Deferred Pelvic: Deferred Rectal: Deferred Extremities: No calf tenderness, Normal capillary refill, No pedal edema Musculoskeletal : Apperance: Normal Neurologic: hook up driver II-XII nml as Tested, Motor Weakness, Normal Affect, Normal Mood, No Sensory Deficits Cerebellar Function: Unable to Test Reflexes: Normal Skin: Dry, Pallor, Warm Lymphatic: No Adenopathy Was a procedure done? Was a procedure done?: No Differential Dx Considerations may include: Displaced midline, UTI X-Ray, Labs, Meds, VS Vital Signs Date Time Temp Pulse Resp B/P (MAP) Pulse Ox O2 Delivery O2 Flow Rate FiO2 07/31/24 11:28 98.6 70 16 118/60 (79) 99 Patient had a midline placed to the left upper extremity The midline team came in placed it The patient was being discharged The patient will follow up with the primary care doctor The patient will return to the emergency department's condition worsens. Images Reviewed?: Images reviewed and evaluated by me Time of 1ST Reevaluation: 11:10 Reevaluation 1ST: Unchanged Patient Education/Counseling: Diagnosis, Treatment, Prognosis, Need For Follow Up Family Education/Counseling: Diagnosis, Treatment, Prognosis, Need For Follow Up Departure 1 Departure Time of Disposition: 15:29 Impression: Primary Impression: Status post PICC central line placement Additional Impression: UTI (urinary tract infection) Qualified Codes: N30.01 - Acute cystitis with hematuria Disposition: HOME / SELF CARE / HOMELESS Condition: Fair Discharged With: Self Critical Care Note Critical Care Time?: No Stability Stability form required: No Heart Score Heart Score: Heart Score Response (Comments) Value History N/A 0 EKG N/A 0 Age N/A 0 Risk Factors N/A 0 Troponin N/A 0 Total 0 PRANEETH TRACEY MD Jul 31, 2024 11:10
[2024-07-31 16:17] VITALS: BP 134/76; PULSE 74; RESP 16; TEMP 98; O2SAT 96
== END 2024-07-31 16:19 | disposition home or self-care (01) ==
LOC: ER 10:18
DX: Z45.2 Encounter for adjustment and management of vascular access device (principal); N39.0 Urinary tract infection, site not specified; I10 Essential (primary) hypertension; E11.9 Type 2 diabetes mellitus without complications; E78.5 Hyperlipidemia, unspecified; Z90.710 Acquired absence of both cervix and uterus; Z90.49 Acquired absence of other specified parts of digestive tract; Z85.038 Personal history of other malignant neoplasm of large intestine; Z79.899 Other long term (current) drug therapy; Z79.4 Long term (current) use of insulin

== ENCOUNTER 2024-12-20 18:50 | Inpatient (IN) | payer OTHER, MEDICAID ==
[~2024-12-20] VITALS: Ht 170.2 cm; Wt 69.0 kg
--- NOTE | 2024-12-20 19:07 | ED.PDOC ---
Musculoskeletal HPI Comments 84 year-old female, poor historian, with a PMHX of Alzheimers, HLD, and HTN, presents to the ED via EMS with a chief complaint of L leg pain s/p fall at 0500 this morning. Patient is a poor historian, information obtained by EMS. Per EMS, patients' son called 911 after patient complained and cried of left leg pain s/p fall off the couch this morning. Patient reports that patient is not currently on any bloodthinners and has had a difficulty walking for weeks. Patient has no further complaints at this time and otherwise denies further associated symptoms of fever, chills, general weakness, dizziness, or fatigue. Per EMS, patients vitals were stable and patient was given 50 mics Fentanyl en route. Past Medical history: Alzheimers, HLD, Cancer, Dementia, HTN Past Surgical history: L Knee Surgery Medications: Social History: Denies smoking, ETOH, and drug use. Allergies: NKA HPI: Poor Historian. REVIEW OF SYSTEMS: CONSTITUTIONAL: Denies acute: fever, diaphoresis, chills, HEAD: Denies acute: headache, photophobia Eyes: Denies acute: Double vision, vision loss, eye pain, eye discharge. EARS: Denies acute: tinnitus, hearing loss, ear discharge, ear pain, THROAT: Denies acute: sore throat, swelling, difficulty swallowing , pain with swallowing, change in voice. NECK: Denies acute: neck pain, neck swelling, stiff neck. HEART: Denies acute : chest pain, palpitations, LUNGS: Denies acute: SOB, wheezing, cough, hemoptysis ABDOMEN: Denies acute: abdominal pain, Nausea, Vomiting, diarrhea, melena , hematemesis, hematochezia SKIN: Denies acute: rash, redness, lesions, itchiness. EXTREMITIES: Denies acute: calf pain, numbness, tingling, weakness, Denies acute: Low back pain. Neuro: Denies acute: focal neurological deficit, motor or sensory focal neurological deficit, tremors, seizure like activity, confusion, dizziness, change in mental status, loss of bowel or bladder function, cauda equina like symptoms. : Denies acute: dysuria, hematuria, flank pain, increase in urinary frequency. PSYCH: Denies acute: hallucination, suicidal ideation, homicidal ideation. FEMALE: Denies acute: abnormal vaginal bleeding, foul odor, unusual discharge. PHYSICAL EXAM: General: ----mild----acute distress, awake and alert. At baseline dementia/Alzheimer Head: normocephalic, atraumatic. Neck: supple, trachea is midline, no swelling. Throat: Normal phonation. Eyes:, no erythema, no purulent discharge, no proptosis, no icterus. Heart: regular rate, regular rhythm, no significant murmur appreciated. Lungs: no apparent respiratory distress, Able to speak in full sentences. No wheezing, no rhonchi, no crackles. No stridors Clear to auscultation bilaterally. Abdomen: non tender to palpation, non distended, soft, no guarding, no rebound, + bowel sounds. Neuro: Awake, Alert, oriented to name, self, situation, follows commands GCS=15. Speech is normal. Skin: no petechia, no purpura, no cyanosis, non-pale, not jaundice. Lower extremities: --no - Pitting edema no deformity, no focal swelling, no calf TTP. Noted left lower extremity tenderness to palpation at the mid shaft. Patient is neurovascularly intact in the affected extremity. Makes eye contact. moves all four extremities. Face: no apparent facial droop. Pelvic rock and does not produce any pain. Pedal pulses are palpable. No nuchal rigidity, Kernig's sign, Brudzinski's sign, no meningeal signs. ED COURSE: DISCLAIMER: This medical document was created using an electronic medical record system with voice recognition software and computerized dictation system. Although this document has been carefully reviewed, there might still be some phonetic and typographical errors. Occasional wrong-word or "sound-alike" substitutions may have occurred due to the inherent limitations of voice recognition software. These areas are purely typographical due to imperfections of the software programs and do not reflect any compromise in the patient's medical care. Please read the chart carefully and recognize, using context, where these substitutions have occurred. Chief Complaint: Fall Injury Time Seen by MD: 18:59 Primary Care Provider: LIZBETH Reviewed Notes: Medications, Allergies Allergies: Coded Allergies: NO KNOWN ALLERGIES (Unverified , 01/18/24) Home Meds Active Scripts Nitrofurantoin (Macrodantin) 50 Mg Cap, 1 CAP PO BID, #14 CAP Prov:MEEK MONIQUE MD 01/31/24 Enoxaparin Sodium (Enoxaparin Sodium) 30 Mg/0.3 Ml Inj, 30 MG SC DAILY for 21 Days, #21 INJ Prov:CLAUDIA ARCHIBALD MD 01/25/24 Hydrocodone-Acetaminophen (Hydrocodone/Acetaminophen 5-325 mg) 1 Tab Tab, 1 TAB PO Q6HP PRN, #20 TAB Prov:CLAUDIA ARCHIBALD MD 01/24/24 Nitrofurantoin Monohydrate Mac (Macrobid) 100 Mg Cap, 100 MG PO BID for 7 Days, #14 CAP Prov:CLAUDIA ARCHIBALD MD 01/24/24 Reported Medications Nitrofurantoin (Nitrofurantoin Macrocryst) 100 Mg Cap, 1 CAP PO BID 01/31/24 Amlodipine Besylate (Amlodipine Besylate) 10 Mg Tab, TAB PO 01/31/24 Atorvastatin Calcium (ATORVASTATIN CALCIUM) 40 Mg Tab, 1 TAB PO DAILY 01/31/24 Nitrofurantoin Monohyd Macro (Nitrofurantoin Monohydrat) 100 Mg Cap, 1 CAP PO BID 01/31/24 Sertraline HCl (Sertraline HCl) 50 Mg Tab, 1 TAB PO DAILY 01/31/24 Sertraline Hcl (Sertraline Hcl) 50 Mg Tab, 50 MG PO DAILY, MG 01/19/24 Lisinopril (Lisinopril) 10 Mg Tab, 10 MG PO DAILY, MG 01/19/24 Donepezil Hydrochloride (DONEPEZIL HCL) 10 Mg Tab, 10 MG PO DAILY, MG 01/19/24 Insulin Isophane & Reg (Human) (Humulin 70/30 (70-30) 100 Unit/ml) 1 Units/0.01 Ml Inj, 14 UNITS SC BIDAC, INJ INJECT 14 UNITS UNDER THE SKIN 2 TIMES DAILY (BEFORE MEALS) 01/19/24 Atorvastatin Calcium (Lipitor) 40 Mg Tab, 40 MG PO QPM, TAB 01/19/24 Amlodipine Besylate (Amlodipine Besylate) 5 Mg Tab, 5 MG PO DAILY, MG 01/19/24 Memantine Hydrochloride (Memantine HCl) 10 Mg Tab, 10 MG PO BID, TAB 01/19/24 Information Source: Patient Mode of Arrival: EMS Location: Left Extremity Location: Calf Timing: Hours Prehospital treatment: Pain Meds (Fent ) Severity: Moderate Past Medical History PAST MEDICAL HISTORY: Cancer, Dementia, DM, High Lipids, HTN, UTI'S Surgical History: Hysterectomy DRY BOSS History: No Pertinent DRY BOSS History Family History Family History: Reviewed,noncontributory to illness Social History Smoker: Non-Smoker Alcohol: Denies ETOH Use Drugs: Denies Drug Use Lives In: Home Was a procedure done? Was a procedure done?: No Differential Diagnosis EXT Differential Diagnosis: Cellulitis, CHF, Deep Vein Thrombosis, Compartment Syndrome, Fracture, Sprain, Dislocation, Laceration, Gout, DJD, Myocardial Infarction, Contusion, Strain, Rheumatoid, Septic, Neurovascular injury, Arthritis, Bursitis X-Ray, Labs, Meds, VS Vital Signs Date Time Temp Pulse Resp B/P (MAP) Pulse Ox O2 Delivery O2 Flow Rate FiO2 12/20/24 19:59 98.1 82 22 138/82 (100) 97 98.1 12/20/24 19:59 78 20 97 Room Air* 0 21 12/20/24 19:10 98.2 64 16 148/66 (93) 98 98.2 Lab Test 12/20/24 20:43 12/20/24 19:33 Range/Units Troponin I High Sensitivity 5 3 L </=34 ng/L White Blood Count 8.8 4.4-10.8 10^3/uL Red Blood Count 4.12 4.0-5.20 10^6/uL Hemoglobin 12.9 12.2-16.2 g/dL Hematocrit 36.8 36.0-46.0 % Mean Corpuscular Volume 89.2 80.0-100.0 fL Mean Corpuscular Hemoglobin 31.3 28.0-32.0 pg Mean Corpuscular Hemoglobin Concent 35.1 32.0-36.0 g/dL Red Cell Distribution Width 13.0 11.8-14.3 % Platelet Count 205 140-450 10^3/uL Mean Platelet Volume 8.6 6.9-10.8 fL Neutrophils (%) (Auto) 72.3 37.0-80.0 % Lymphocytes (%) (Auto) 20.7 10.0-50.0 % Monocytes (%) (Auto) 5.3 0.0-12.0 % Eosinophils (%) (Auto) 1.1 0.0-7.0 % Basophils (%) (Auto) 0.6 0.0-2.0 % Neutrophils # (Auto) 6.4 1.6-8.6 10 ^3/uL Lymphocytes # (Auto) 1.8 0.4-5.4 10 ^3/uL Monocytes # (Auto) 0.5 0-1.3 10 ^3/uL Eosinophils # (Auto) 0.1 0-0.8 10 ^3/uL Basophils # (Auto) 0 0-0.2 10 ^3/uL Nucleated Red Blood Cells 0.0 % Sodium Level 137 136-145 mmol/L Potassium Level 4.2 3.5-5.1 mmol/L Chloride Level 103 98-107 mmol/L Carbon Dioxide Level 25 20-31 mmol/L Anion Gap 9 5-15 Blood Urea Nitrogen 17 9-23 mg/dL Creatinine 0.82 0.550-1.02 mg/dL Glomerular Filtration Rate Calc 70 >90 mL/min BUN/Creatinine Ratio 20.7 H 10.0-20.0 Serum Glucose 248 H 74-106 mg/dL Hemoglobin A1c 9.0 H <5.7 % A1C Lactic Acid Level 2.0 0.4-2.0 mmol/L Calcium Level 8.8 8.7-10.4 mg/dL Magnesium Level 1.8 1.6-2.6 mg/dL Total Bilirubin 0.4 0.2-1.0 mg/dL Aspartate Amino Transferase (AST) 35 13-40 U/L Alanine Aminotransferase (ALT) 49 H 7-40 U/L Alkaline Phosphatase 104 46-116 U/L B-Type Natriuretic Peptide 35.44 0-100 pg/mL Total Protein 5.9 5.7-8.2 g/dL Albumin 3.6 3.2-4.8 g/dL Vitamin B12 Level Pending Vitamin D 25-Hydroxy 37.9 30.0-100 ng/mL Folic Acid Pending Thyroid Stimulating Hormone (TSH) 4.96 H 0.55-4.78 uIU/mL [facility] [id number] [place] [id number] Ph: [phone] DIAGNOSTIC IMAGING Diagnostic Imaging Report : [id number] Signed PATIENT: JORDAN HERZOGAYAH ACCT: [id number] UNIT: [id number] : 1940 LOC: ER ROOM / BED: / AGE / SEX: 84 / F ADM STATUS: REG ER SERVICE 58 ORDERING PHYSICIAN: FAITH COX DO PROCEDURE(s): LTBFB - L TIB FIB XRAY REASON: pain, possible fall. ORDER NUMBER(s): [id number], ACCESSION NUMBER(s): [id number] CLINICAL INDICATION: pain, possible fall. TECHNIQUE: 2 radiographic views of the left tibia and fibula were obtained. Comparison: None FINDINGS/IMPRESSION: Left total knee arthroplasty is noted in place. Is a displaced proximal fibular fracture. There is a displaced spiral fracture of the distal 3rd of the left tibia. Distal fibula not well seen [place] [address] Ph: [phone] DIAGNOSTIC IMAGING Diagnostic Imaging Report : [id number] Signed PATIENT: KINGSLEY HERZOG ACCT: [id number] UNIT: [id number] : 1940 LOC: ER ROOM / BED: / AGE / SEX: 84 / F ADM STATUS: REG ER SERVICE 58 ORDERING PHYSICIAN: FAITH COX DO PROCEDURE(s): LLDVT - LT Lower DVT REASON: pain ORDER NUMBER(s): [id number], ACCESSION NUMBER(s): [id number] LEFT lower extremity venous duplex Clinical History: pain Comparison: None Technique: Duplex Doppler evaluation of the deep venous systems of both lower extremities from the common femoral veins to the popliteal veins including color Doppler and spectral/pulsed waveform analysis was performed. Findings: LEFT SIDE: The common femoral vein demonstrates appropriate compressibility and waveform variability. There is compressibility/patency of the great saphenous vein at the proximal thi gh. The femoral vein demonstrates appropriate compressibility and waveform variability. The deep femoral vein demonstrates appropriate compressibility and waveform variability. The popliteal vein demonstrates partially obstructing thrombus in the popliteal vein may be chronic. There is no compressibility at the tibioperoneal trunk. Impression: 1. Partially occluding thrombus in the left popliteal vein. This may be chronic. The left trifurcation shows no flow. [address] [address] Ph: [phone] DIAGNOSTIC IMAGING Diagnostic Imaging Report : [id number] Signed PATIENT: KINGSLEY HERZOG ACCT: [id number] UNIT: [id number] : 1940 LOC: ER ROOM / BED: / AGE / SEX: 84 / F ADM STATUS: REG ER SERVICE 20 ORDERING PHYSICIAN: FAITH COX DO PROCEDURE(s): HWOCT - HEAD WITHOUT CONTRAST REASON: fall ORDER NUMBER(s): [id number], ACCESSION NUMBER(s): [id number] EXAM: CT HEAD WITHOUT CONTRAST INDICATION: fall TECHNIQUE: CT of the head without intravenous contrast. Radiation Dose : 1. Head: CT Dose: CTDI volume is 63.35 mGy. Dose-length product is 1248.19 mGy*cm The dose indicators for CT are the volume Computed Tomography (CT) Dose Index (CTDIvol) and the Dose Length Product (DLP), and are measured in units of mGy and mGy-cm, respectively. These indicators are not patient dose, but values generated from the CT scanner acquisition factors. The report includes radiation exposure data for exposures received during this examination. COMPARISON: CT HEAD WITHOUT CONTRAST on DOS: 01/18/24 FINDINGS: There is no evidence of acute intracranial hemorrhage, extra-axial collection, mass effect, midline shift, herniation or hydrocephalus. Increased prominence of the ventricles, sulci and cisterns is consistent with the sequelae of atrophic cortical volume loss. The gallegos-white differentiation is intact. Moderate diffuse confluent periventricular and subcortical white matter hypoattenuation is nonspecific but may be related to small vessel ischemic disease. Right maxillary mucosal sinus disease. The remaining visualized paranasal sinuses and mastoid air cells are clear. The surrounding soft tissues and osseous structures are unremarkable. IMPRESSION: 1. No acute intracranial abnormality. 2. Chronic sequelae of microvascular disease and atrophic cortical volume loss. Radiation optimization: All CT scans at this facility use at least one of these dose optimization techniques: automated exposure control mA and/or kV adjustment per patient size (includes targeted exams where dose is matched to clinical indication) or iterative reconstruction. [address] [address] Ph: [phone] DIAGNOSTIC IMAGING Diagnostic Imaging Report : [id number] Signed PATIENT: KINGSLEY HERZOG ACCT: [id number] UNIT: [id number] : 1940 LOC: ER ROOM / BED: / AGE / SEX: 84 / F ADM STATUS: REG ER SERVICE 20 ORDERING PHYSICIAN: FAITH COX DO PROCEDURE(s): ABPL - CT AB PEL WO CON-NO ORAL OR IV REASON: fall ORDER NUMBER(s): [id number], ACCESSION NUMBER(s): [id number] Exam: CT CT AB PEL WO CON-NO ORAL OR IV History: fall Comparison Study: CT CT AB PEL WO CON-NO ORAL OR IV on DOS: 01/18/24 TECHNIQUE: Multidetector CT of the abdomen and pelvis without IV contrast. Axial, coronal and sagittal multiplanar reformats were obtained from the axial data set by the technologist. Radiation Dose Information: CT Dose: CTDI volume is 10.41 mGy. Dose-length product is 681.66 mGy*cm FINDINGS: Bibasilar atelectasis. Partially visualized heart is unremarkable. Liver, spleen, gallbladder, pancreas and adrenal glands unremarkable. Left renal artery calcifications. Otherwise, kidneys, and ureters are unremarkable. Mild wall thickening of the urinary bladder. Uterus is not definitely visualized. Question hysterectomy. [id number] distention of the stomach. Small bowel loops are unremarkable. Postsurgical changes of right hemicolectomy. Large amount of fecal material within the transverse colon with moderate amount of fecal material within the remainder of the colon. Descending colon and Sigmoid diverticulosis without diverticulitis. Mild distal rectal wall thickening. No evidence of intraperitoneal free air or free fluid. Moderate atherosclerotic calcification of the aorta with moderate to heavy atherosclerotic calcification of bilateral internal iliac arteries and moderate atherosclerotic calcification of bilateral common iliac and external iliac arteries. No significant lymphadenopathy. Minimal body wall edema. 0.9 x 1.9 cm partially imaged lipoma of the left medial upper thigh musculature. Diffuse demineralization. Mild chronic loss of superior vertebral body height of L3. screw fixation of bilateral femoral heads. IMPRESSION: Mild wall thickening of the urinary bladder. Recommend correlation with urinalysis for possible cystitis. Colonic diverticulosis without diverticulitis. [place] [address] Ph: [phone] DIAGNOSTIC IMAGING Diagnostic Imaging Report : [id number] Signed PATIENT: KINGSLEY HERZOG ACCT: [id number] UNIT: [id number] : 1940 LOC: ER ROOM / BED: / AGE / SEX: 84 / F ADM STATUS: REG ER SERVICE 20 ORDERING PHYSICIAN: FAITH COX DO PROCEDURE(s): CS2 - CERVICAL WITHOUT CONTRAST REASON: fall ORDER NUMBER(s): [id number], ACCESSION NUMBER(s): [id number] EXAM: CT CERVICAL WITHOUT CONTRAST INDICATION: fall EXAM DATE: 12/20/2024 08:18 PM COMPARISON: None TECHNIQUE: Multiple axial CT images of the cervical spine were obtained using bone algorithm. Axial and coronal reformatting was done. Bone and soft tissue windows were reviewed. Radiation Dose Information: CT Dose: CTDI volume is 14.94 mGy. Dose-length product is 396.77 mGy*cm FINDINGS: The cervical alignment is intact. No acute cervical spine fracture is identified. The vertebral body heights are intact. No suspicious osseous lesions are identified. No significant degenerative changes are identified. There is no prevertebral soft tissue swelling. IMPRESSION: 1. No evidence of acute cervical spine fracture or traumatic malalignment. All CT scans at this medical facility are performed using dose modulation techniques as appropriate to a performed exam including the following: Automated exposure control was utilized; adjustment of the MA and/or KV according to patient size; and use of iterative reconstruction technique. Time of 1ST Reevaluation: 19:05 Reevaluation 1ST: Unchanged Patient Education/Counseling: Diagnosis, Treatment Family Education/Counseling: No Family Present Comments MDM: patient presented with the above HPI.----fall/extremity pain--workup was initiated. patient was found with the above mentioned diagnosis. the following medications were ordered: please refer to order lists of meds and tests obtained by myself Dr. Cox. Patient ED course and VS have been stabilized. Patient has been reassessed in the ED and remained in a stable condition. Pertinent incidental findings were discussed with the patient and/or family. Patient/family voices understanding and is agreeable with plan. Patient has been observed in the ED adequate length of time to insure improvement/stability. Escalation of care considered: Consideration of escalation to observation or admission Splint was ordered. Patient was ADMITTED to the medicine team for further evaluation and treatment of their presentation. All the reports of any imaging studies that were ordered by myself were reviewed by myself. Sepsis Sepsis Reasesment Focused Exam Orders: Laboratory Tests 12/20/24 19:33: Lactic Acid Level 2.0 Departure 1 Departure Time of Disposition: 20:27 Impression: Primary Impression: Left tibial fracture Additional Impressions: Non-occlusive thrombus Fall UTI (urinary tract infection) Closed left fibular fracture Disposition: ADMITTED INPATIENT Admit to: Tele Condition: Guarded Discharged With: Self Critical Care Note Critical Care Time?: No I personally scribed for FAITH COX DO ([email or web address]) on 12/20/24 at 19:07. Electronically submitted by Tami Urena ([email or web address]). I personally scribed for FAITH COX DO ([email or web address]) on 12/20/24 at 19:30. Electronically submitted by Tami Urena ([email or web address]). I personally scribed for FAITH COX DO ([email or web address]) on 12/20/24 at 20:48. Electronically submitted by Tami Urena ([email or web address]). I personally scribed for FAITH COX DO ([email or web address]) on 12/20/24 at 20:49. Electronically submitted by Tami Urena ([employer]). I personally scribed for FAITH COX DO ([email or web address]) on 12/20/24 at 21:29. Electronically submitted by Tami Urena ([employer]). I personally scribed for FAITH COX DO ([email or web address]) on 12/20/24 at 21:30. Electronically submitted by Tami Urena ([email or web address]). I personally scribed for FAITH COX DO ([email or web address]) on 12/20/24 at 21:30. Electronically submitted by Tami Urena ([employer]). FAITH COX DO Dec 20, 2024 19:07
[2024-12-20 19:44] LABS: Hematocrit 36.8 % (36.0-46.0); Hemoglobin 12.9 g/dL (12.2-16.2); Mean Corpuscular Hemoglobin 31.3 pg (28.0-32.0); Mean Corpuscular Volume 89.2 fL (80.0-100.0); Nucleated Red Blood Cells % 0.0 %
[2024-12-20 19:59] VITALS: PULSE 78; RESP 20; O2SAT 97
[2024-12-20 20:00] LABS: Alanine Aminotransferase 49 U/L (7-40); Albumin 3.6 g/dL (3.2-4.8); Alkaline Phosphatase 104 U/L (46-116); Anion Gap 9 (5-15); BUN/Creatinine Ratio 20.7 (10.0-20.0); Bilirubin, Total 0.4 mg/dL (0.2-1.0); Blood Urea Nitrogen 17 mg/dL (9-23); Calcium 8.8 mg/dL (8.7-10.4); Carbon Dioxide 25 mmol/L (20-31); Chloride 103 mmol/L (98-107); Glucose 248 mg/dL (74-106); Magnesium 1.8 mg/dL (1.6-2.6); Potassium 4.2 mmol/L (3.5-5.1); Sodium 137 mmol/L (136-145); Total Protein 5.9 g/dL (5.7-8.2)
--- NOTE | 2024-12-20 20:38 | DVH ---
LEFT lower extremity venous duplex Clinical History: pain Comparison: None Technique: Duplex Doppler evaluation of the deep venous systems of both lower extremities from the common femora l veins to the popliteal veins including color Doppler and spectral/pulsed waveform analysis was perf ormed. Findings: LEFT SIDE: The common femoral vein demonstrates appropriate compressibility and waveform variability. There is compressibility/patency of the great saphenous vein at the proximal thigh. The femoral vein demonstrates appropriate compressibility and waveform variability. The deep femoral vein demonstrates appropriate compressibility and waveform variability. The popliteal vein demonstrates partially obstructing thrombus in the popliteal vein may be chronic. There is no compressibility at the tibioperoneal trunk. Impression: 1. Partially occluding thrombus in the left popliteal vein. This may be chronic. The left trifurcat ion shows no flow.
--- NOTE | 2024-12-20 20:43 | DVH ---
CLINICAL INDICATION: pain, possible fall. TECHNIQUE: 2 radiographic views of the left tibia and fibula were obtained. Comparison: None FINDINGS/IMPRESSION: Left total knee arthroplasty is noted in place. Is a displaced proximal fibular fracture. There is a displaced spiral fracture of the distal 3rd of the left tibia. Distal fibula not well seen
--- NOTE | 2024-12-20 21:06 | DVH ---
EXAM: CT HEAD WITHOUT CONTRAST INDICATION: fall TECHNIQUE: CT of the head without intravenous contrast. Radiation Dose : 1. Head: CT Dose: CTDI volume is 63.35 mGy. Dose-length product is 1248.19 mGy*cm The dose indicators for CT are the volume Computed Tomography (CT) Dose Index (CTDIvol) and the Dose Length Product (DLP), and are measured in units of mGy and mGy-cm, respectively. These indicators are not patient dose, but values generated from the CT scanner acquisition factors. The report includes radiation exposure data for exposures received during this examination. COMPARISON: CT HEAD WITHOUT CONTRAST on DOS: 01/18/24 FINDINGS: There is no evidence of acute intracranial hemorrhage, extra-axial collection, mass effect, midline s hift, herniation or hydrocephalus. Increased prominence of the ventricles, sulci and cisterns is consistent with the sequelae of atrophi c cortical volume loss. The gallegos-white differentiation is intact. Moderate diffuse confluent periventricular and subcortical white matter hypoattenuation is nonspecifi c but may be related to small vessel ischemic disease. Right maxillary mucosal sinus disease. The remaining visualized paranasal sinuses and mastoid air c ells are clear. The surrounding soft tissues and osseous structures are unremarkable. IMPRESSION: 1. No acute intracranial abnormality. 2. Chronic sequelae of microvascular disease and atrophic cortical volume loss. Radiation optimization: All CT scans at this facility use at least one of these dose optimization kai hniques: automated exposure control mA and/or kV adjustment per patient size (includes targeted exam s where dose is matched to clinical indication) or iterative reconstruction.
--- NOTE | 2024-12-20 21:09 | DVH ---
EXAM: CT CERVICAL WITHOUT CONTRAST INDICATION: fall EXAM DATE: 12/20/2024 08:18 PM COMPARISON: None TECHNIQUE: Multiple axial CT images of the cervical spine were obtained using bone algorithm. Axial a nd coronal reformatting was done. Bone and soft tissue windows were reviewed. Radiation Dose Information: CT Dose: CTDI volume is 14.94 mGy. Dose-length product is 396.77 mGy*cm FINDINGS: The cervical alignment is intact. No acute cervical spine fracture is identified. The vertebral body heights are intact. No suspicious osseous lesions are identified. No significant degenerative changes are identified. There is no prevertebral soft tissue swelling. IMPRESSION: 1. No evidence of acute cervical spine fracture or traumatic malalignment. All CT scans at this medical facility are performed using dose modulation techniques as appropriate t o a performed exam including the following: Automated exposure control was utilized; adjustment of th e MA and/or KV according to patient size; and use of iterative reconstruction technique.
--- NOTE | 2024-12-20 21:23 | DVH ---
Exam: CT CT AB PEL WO CON-NO ORAL OR IV History: fall Comparison Study: CT CT AB PEL WO CON-NO ORAL OR IV on DOS: 01/18/24 TECHNIQUE: Multidetector CT of the abdomen and pelvis without IV contrast. Axial, coronal and sagitta l multiplanar reformats were obtained from the axial data set by the technologist. Radiation Dose Information: CT Dose: CTDI volume is 10.41 mGy. Dose-length product is 681.66 mGy*cm FINDINGS: Bibasilar atelectasis. Partially visualized heart is unremarkable. Liver, spleen, gallbladder, pancreas and adrenal glands unremarkable. Left renal artery calcifications. Otherwise, kidneys, and ureters are unremarkable. Mild wall thick ening of the urinary bladder. Uterus is not definitely visualized. Question hysterectomy. [id number] distention of the stomach. Small bowel loops are unremarkable. Postsurgical changes of right hemicolectomy. Large amount of fecal material within the transverse colon with moderate amou nt of fecal material within the remainder of the colon. Descending colon and Sigmoid diverticulosis w ithout diverticulitis. Mild distal rectal wall thickening. No evidence of intraperitoneal free air or free fluid. Moderate atherosclerotic calcification of the aorta with moderate to heavy atherosclerotic calcificat ion of bilateral internal iliac arteries and moderate atherosclerotic calcification of bilateral comm on iliac and external iliac arteries. No significant lymphadenopathy. Minimal body wall edema. 0.9 x 1.9 cm partially imaged lipoma of the left medial upper thigh musculat ure. Diffuse demineralization. Mild chronic loss of superior vertebral body height of L3. screw fixat ion of bilateral femoral heads. IMPRESSION: Mild wall thickening of the urinary bladder. Recommend correlation with urinalysis for possible cyst itis. Colonic diverticulosis without diverticulitis.
--- NOTE | 2024-12-20 21:55 | DVHHP2 ---
History of Present Illness History of Present Illness Patient is 84 years old female with past medical history of hypertension, diabetes mellitus type 2, hyperlipidemia, Alzheimer's dementia, cecal carcinoma, status post surgical intervention was brought in status post fall. Patient is a poor historian. As per son patient had a fall around 5:00 a.m. today in the morning, patient fell from the couch, complaining of left leg pain severe, constant. Patient's son denied patient hitting her head. Patient's son reported patient is mostly bedridden and needs assistance in her daily activity. Patient reported dysuria that has been going on for a while but could not give exact duration. Initial lab workup revealed blood sugar 248, troponin I WNL. Doppler study of left lower extremity revealed-Partially occluding thrombus in the left popliteal vein. This may be chronic. The left trifurcation shows no flow. X-ray left tibia and fibula revealed-Left total knee arthroplasty is noted in place. there is a displaced proximal fibular fracture. There is a displaced spiral fracture of the distal 3rd of the left tibia. Distal fibula not well seen. CT abdomen and pelvis revealed-Mild wall thickening of the urinary bladder. .Colonic diverticulosis without diverticulitis. CT cervical spine- No evidence of acute cervical spine fracture or traumatic malalignment. CT head revealed- No acute intracranial abnormality. Chronic sequelae of microvascular disease and atrophic cortical volume loss. Past Medical History hypertension, diabetes mellitus type 2, hyperlipidemia, allergy meds dementia, cecal carcinoma, status post surgical intervention Past Surgical History Left knee surgery, left hip surgery as per son, surgical intervention for cecal carcinoma Past Social History Denies smoking/alcoholism/drug abuse, lives with son Review of Systems Review of Systems Details of the other system could not be reviewed due to patient's current medical condition, patient is a poor historian Allergies: Coded Allergies: NO KNOWN ALLERGIES (Unverified , 01/18/24) Exam Vital Signs Vital Signs Date Time Temp Pulse Resp B/P (MAP) Pulse Ox O2 Delivery O2 Flow Rate FiO2 12/20/24 19:59 98.1 82 22 138/82 (100) 97 98.1 12/20/24 19:59 Room Air* 0 21 Exam General examination- awake, conversive HEENT- PEERLA, no acute nasal discharge Cardiovascular- S1-S2 audible, rate and rhythm regular, no murmur Respiratory- CTAB, no wheeze or rhonchi Gastrointestinal-nontender, bowel sound+. Nondistended Musculoskeletal-no acute joint swelling or tenderness or redness Lower extremity- left leg swollen++ Neurological-unless muscle weakness, muscular atrophy, Skin- no acute rash or purpura Labs/Xrays Labs Test 12/20/24 20:43 12/20/24 19:33 Range/Units Troponin I High Sensitivity 5 </=34 ng/L White Blood Count 8.8 4.4-10.8 10^3/uL Red Blood Count 4.12 4.0-5.20 10^6/uL Hemoglobin 12.9 12.2-16.2 g/dL Hematocrit 36.8 36.0-46.0 % Mean Corpuscular Volume 89.2 80.0-100.0 fL Mean Corpuscular Hemoglobin 31.3 28.0-32.0 pg Mean Corpuscular Hemoglobin Concent 35.1 32.0-36.0 g/dL Red Cell Distribution Width 13.0 11.8-14.3 % Platelet Count 205 140-450 10^3/uL Mean Platelet Volume 8.6 6.9-10.8 fL Neutrophils (%) (Auto) 72.3 37.0-80.0 % Lymphocytes (%) (Auto) 20.7 10.0-50.0 % Monocytes (%) (Auto) 5.3 0.0-12.0 % Eosinophils (%) (Auto) 1.1 0.0-7.0 % Basophils (%) (Auto) 0.6 0.0-2.0 % Neutrophils # (Auto) 6.4 1.6-8.6 10 ^3/uL Lymphocytes # (Auto) 1.8 0.4-5.4 10 ^3/uL Monocytes # (Auto) 0.5 0-1.3 10 ^3/uL Eosinophils # (Auto) 0.1 0-0.8 10 ^3/uL Basophils # (Auto) 0 0-0.2 10 ^3/uL Nucleated Red Blood Cells 0.0 % Sodium Level 137 136-145 mmol/L Potassium Level 4.2 3.5-5.1 mmol/L Chloride Level 103 98-107 mmol/L Carbon Dioxide Level 25 20-31 mmol/L Anion Gap 9 5-15 Blood Urea Nitrogen 17 9-23 mg/dL Creatinine 0.82 0.550-1.02 mg/dL Glomerular Filtration Rate Calc 70 >90 mL/min BUN/Creatinine Ratio 20.7 H 10.0-20.0 Serum Glucose 248 H 74-106 mg/dL Lactic Acid Level 2.0 0.4-2.0 mmol/L Calcium Level 8.8 8.7-10.4 mg/dL Magnesium Level 1.8 1.6-2.6 mg/dL Total Bilirubin 0.4 0.2-1.0 mg/dL Aspartate Amino Transferase (AST) 35 13-40 U/L Alanine Aminotransferase (ALT) 49 H 7-40 U/L Alkaline Phosphatase 104 46-116 U/L Total Protein 5.9 5.7-8.2 g/dL Albumin 3.6 3.2-4.8 g/dL SEPSIS Sepsis Screen Date sepsis recognized/suspect: Dec 20, 2024 Time Sepsis recognized/suspect: 2001 Recent Procedure: No On Antibiotic Therapy: No Respiratory Rate >20: No Heart Rate >90: No Temp<36 C (96.8 F) or >38.3 C: No SBP <90 or MAP <65 mmHG: No New Acute Mental Status Change: No Is the patient on CPAP, BIPAP,: No Physician Orders Transportation Refrigeration Technician (12/20/24 ) Urinalysis (12/20/24 18:59) Electrocardigram (12/20/24 18:59) L Tib Fib Xray (12/20/24 18:59) Lt Lower Dvt (12/20/24 18:59) Head Without Contrast (12/20/24 19:21) Ct Ab Pel Wo Con-No Oral Or Iv (12/20/24 19:21) Cervical Without Contrast (12/20/24 19:21) Splints (12/20/24 ) Insert Rodrigues Catheter QSHIFT (12/20/24 21:35) Admit (12/20/24 21:47) Code Status (12/20/24 21:47) Complete Blood Count (12/21/24 04:00) Comprehensive Metabolic Panel (12/21/24 04:00) Cardiac Diet-2gna,Lofat,Lochol (12/21/24 Breakfast) Acetaminophen Tablet (Tylenol Tablet) (12/20/24 22:00) Notify Of Changes From Base (12/20/24 21:47) Physician Practice Consultant For 24 Hours (12/20/24 21:47) Vital Signs Date Time Temp Pulse Resp B/P (MAP) Pulse Ox O2 Delivery O2 Flow Rate FiO2 12/20/24 19:59 98.1 82 22 138/82 (100) 97 98.1 12/20/24 19:59 78 20 97 Room Air* 0 21 12/20/24 19:10 98.2 64 16 148/66 (93) 98 98.2 Laboratory Tests Test 12/20/24 19:33 Lactic Acid Level 2.0 mmol/L (0.4-2.0) White Blood Count 8.8 10^3/uL (4.4-10.8) Assessment/Plan Assessment/Plan Assessment and plan # Acutely displaced spiral fracture of the distal 3rd of the left tibia status post fall # Left proximal fibular fracture # s/p fall # Left leg pain and swelling -x-ray of the left leg- displaced proximal fibular fracture, displaced spiral fracture of the distal 3rd of the left tibia -CT head-Chronic sequelae of microvascular disease and atrophic cortical volume loss. -CT cervical spine- No evidence of acute cervical spine fracture or traumatic malalignment. -continue pain medication as prescribed -pending orthopedic consult -NPO after midnight # Left leg swelling likely due to DVT. Acute versus chronic DVT -Doppler study of the left lower extremity-Partially occluding thrombus in the left popliteal vein. This may be chronic. The left trifurcation shows no flow. -ordered 1st dose of Lovenox -patient might need surgical intervention for left tibial fracture, we will let the primary team/orthopedic team decide regarding further anticoagulant and further management # Acute complicated cystitis -urinalysis revealed leukocyte esterase 2+, WBC 111 -pending urine culture -ordered ceftriaxone 1 g IV daily -continue IV normal saline as prescribed # Hypertension -resumed home medication amlodipine and lisinopril -monitor blood pressure #Diabetes mellitus type 2 with the hypoglycemia -HB A1C-9.0 -resumed home medication insulin Humulin 70/30 - Accu check as recommended # history of Cecal carcinoma, status post surgical intervention -follow up outpatient with primary care physician # Alzheimer's dementia -CT head negative for acute intracranial hemorrhage or infarction -resumed home medication memantine and donepezil NPO after midnight Goals of care, Code status full code ; discussed with >15 minutes PUD prophylaxis: Pantoprazole DVT prophylaxis: Plan discussed with Dr. Martinez , nursing staff, Total time spent on patient evaluation, chart review, assessment and plan, discussion discussion >35 minutes Plan discussed with: Patient, Son, Other My Orders Orders - FREDA MONET Procedure Category Date Status Time Admit ADMIT 12/20/24 Verified 21:47 Code Status CODE 12/20/24 Verified 21:47 Complete Blood Count LAB 12/21/24 Verified 04:00 Comprehensive LAB 12/21/24 Verified Metabolic Panel 04:00 Cardiac DIET 12/21/24 Verified Diet-2gna,Lofat,Lochol Breakfast Acetaminophen Tablet PHA 12/20/24 Verified (Tylenol Tablet) 22:00 Notify Of Changes OSBALDO 12/20/24 Verified From Base 21:47 Physician Practice Consultant For [facility] 12/20/24 Verified 24 Hours 21:47 Date of Service: Dec 20, 2024 Billing Provider: DEVIKA MARTINEZ MD Common Visit Codes: 00611-[id number] INP/OBS CARE (HIGH) Secondary Visit Codes: 12056-[id number] CARE PLAN 30 MINUTES FREDA MONET Dec 20, 2024 21:55
[2024-12-20] MEDS ORDERED: ACETAMINOPHEN 325 MG TAB PO PRN (22:00)
[2024-12-20] MEDS ORDERED: PATIENTS OWN MEDICATION (Memantine Hydrochloride (Memantine HCl) 10 MG) PO SCH (22:00)
[2024-12-20] MEDS: ATORVASTATIN 20 MG TAB PO ONE (22:22)
[2024-12-20] MEDS: PANTOPRAZOLE 40 MG TAB PO ONE (22:23)
[2024-12-20 23:18] VITALS: BP 126/60; PULSE 57; RESP 17; TEMP 97.9; O2SAT 95
[2024-12-20 23:20] VITALS: BP 120/60; PULSE 57; RESP 17; TEMP 97.9; O2SAT 95
[2024-12-20] MEDS: MAGNESIUM SULFATE 1GM/100ML 100 ML IV ONE (23:27)
[2024-12-20] MEDS: ENOXAPARIN SOD 80 MG/0.8ML SYRINGE SC ONE (23:28)
[2024-12-21] VITALS (8 sets, daily range): BP systolic 117–149; BP diastolic 56–77; PULSE 47–74; RESP 16–18; TEMP 97.9–99.6; O2SAT 92–99
[2024-12-21 00:01] LABS: Urine Protein, UAD 1+ (Negative); Urine WBC Clumps PRESENT /hpf (None Seen)
[2024-12-21] MEDS: SODIUM CHLORIDE 0.9% 1,000 ML IV ONE (02:23)
[2024-12-21 02:26] LABS: COVID19 ANTIGEN SOFIA FIA NEGATIVE (NEGATIVE)
[2024-12-21] MEDS: cefTRIAXone 1GM/50ML D5W 50 ML IV ONE (03:55)
[2024-12-21] MEDS: SODIUM CHLORIDE 0.9% 1,000 ML IV SCH (03:55)
[2024-12-21] MEDS: PANTOPRAZOLE 40 MG TAB PO SCH (05:09)
[2024-12-21 06:40] LABS: Hematocrit 33.0 % (36.0-46.0); Hemoglobin 11.4 g/dL (12.2-16.2); Mean Corpuscular Hemoglobin 30.9 pg (28.0-32.0); Mean Corpuscular Volume 89.3 fL (80.0-100.0); Nucleated Red Blood Cells % 0.1 %
[2024-12-21 06:57] LABS: Alanine Aminotransferase 36 U/L (7-40); Albumin 3.3 g/dL (3.2-4.8); Alkaline Phosphatase 92 U/L (46-116); Anion Gap 7 (5-15); BUN/Creatinine Ratio 17.6 (10.0-20.0); Blood Urea Nitrogen 13 mg/dL (9-23); Calcium 8.9 mg/dL (8.7-10.4); Carbon Dioxide 25 mmol/L (20-31); Chloride 107 mmol/L (98-107); Potassium 3.7 mmol/L (3.5-5.1); Sodium 139 mmol/L (136-145)
[2024-12-21 06:58] LABS: Bilirubin, Total 0.3 mg/dL (0.2-1.0); Glucose 199 mg/dL (74-106); Total Protein 5.6 g/dL (5.7-8.2)
[2024-12-21] MEDS ORDERED: INSULIN 70/30 1unit/0.01ml Susp (100units/ml) SC SCH ×2 (07:00)
[2024-12-21] MEDS: ACCU-CHEK COMFORT CURVE STRIP VI SCH (07:12)
[2024-12-21] MEDS: INSULIN 70/30 1unit/0.01ml Susp (100units/ml) SC SCH (07:39)
[2024-12-21] MEDS: DONEPEZIL HYDROCHLORIDE 5 MG TAB PO SCH (08:39)
[2024-12-21] MEDS: cefTRIAXone 1GM/50ML D5W 50 ML IV SCH (08:39)
[2024-12-21] MEDS: LISINOPRIL 5 MG TAB PO SCH (08:40)
[2024-12-21] MEDS: SERTRALINE HCL 50 MG TAB PO SCH (08:40)
[2024-12-21] MEDS: MEMANTINE HCL 5 MG TAB PO SCH (08:40)
[2024-12-21] MEDS ORDERED: PATIENTS OWN MEDICATION (Lisinopril 10 MG) PO SCH (10:00)
[2024-12-21] MEDS ORDERED: PATIENTS OWN MEDICATION (Donepezil Hydrochloride (Donepezil Hcl) 10 MG) PO SCH (10:00)
--- NOTE | 2024-12-21 10:32 | DVH ---
CHEST RADIOGRAPH Indication: CHF/PNA Technique: Single frontal view of the chest was obtained COMPARISON: XY CHEST PORTABLE on DOS: 01/19/24 FINDINGS: Lines and Tubes: None Lungs: Clear Pleura: No effusion. No pneumothorax. Cardiomediastinal contours: Unremarkable Bones: Unremarkable IMPRESSION: No acute disease.
--- NOTE | 2024-12-21 11:13 | DVHINCON2 ---
Date of service: Dec 21, 2024 Reason for Consultation Left distal tibial shaft fracture History of Present Illness Mrs. Escobedo is an 84 year old female with a history of dementia who was brought to the hospital due to a left tibial shaft fracture. I spoke with the patient's son due to the patient's dementia limiting her ability to give me her history and her son mentioned that she previously had a left hip fracture operation at the end of last year which she was recovering from but was delayed and limited due to issues with her physical therapy. Patient's son reports that the patient was able to ambulate only a few steps with the assistance before this most recent accident. Patient's son notes that he found her on the floor yesterday covered in diarrhea and was helping her get up when he was repositioning her tr hernan to get her onto the bed but her foot stayed planted onto the ground and he heard a pop and saw that she has been having pain to her left lower leg since. Patient's son reports that the patient did not have any head trauma, loss of consciousness, chest pain, shortness of breath, nausea, vomiting, fever, or chills. Past Medical History hypertension, diabetes mellitus type 2, hyperlipidemia, allergy meds, dementia, cecal carcinoma Past Surgical History Left knee surgery, left hip surgery as per son, surgical intervention for cecal carcinoma Family History: Patient reports no known family medical history. Family History Noncontributory Social History Patient denies smoking, EtOH, or illicit substance abuse Allergies: Coded Allergies: NO KNOWN ALLERGIES (Unverified , 01/18/24) Home Meds Active Scripts Nitrofurantoin (Macrodantin) 50 Mg Cap, 1 CAP PO BID, #14 CAP Prov:MEEK MONIQUE MD 01/31/24 Enoxaparin Sodium (Enoxaparin Sodium) 30 Mg/0.3 Ml Inj, 30 MG SC DAILY for 21 Days, #21 INJ Prov:CLAUDIA ARCHIBALD MD 01/25/24 Hydrocodone-Acetaminophen (Hydrocodone/Acetaminophen 5-325 mg) 1 Tab Tab, 1 TAB PO Q6HP PRN, #20 TAB Prov:CLAUDIA ARCHIBALD MD 01/24/24 Nitrofurantoin Monohydrate Mac (Macrobid) 100 Mg Cap, 100 MG PO BID for 7 Days, #14 CAP Prov:CLAUDIA ARCHIBALD MD 01/24/24 Reported Medications Nitrofurantoin (Nitrofurantoin Macrocryst) 100 Mg Cap, 1 CAP PO BID 01/31/24 Amlodipine Besylate (Amlodipine Besylate) 10 Mg Tab, TAB PO 01/31/24 Atorvastatin Calcium (ATORVASTATIN CALCIUM) 40 Mg Tab, 1 TAB PO DAILY 01/31/24 Nitrofurantoin Monohyd Macro (Nitrofurantoin Monohydrat) 100 Mg Cap, 1 CAP PO BID 01/31/24 Sertraline HCl (Sertraline HCl) 50 Mg Tab, 1 TAB PO DAILY 01/31/24 Sertraline Hcl (Sertraline Hcl) 50 Mg Tab, 50 MG PO DAILY, MG 01/19/24 Lisinopril (Lisinopril) 10 Mg Tab, 10 MG PO DAILY, MG 01/19/24 Donepezil Hydrochloride (DONEPEZIL HCL) 10 Mg Tab, 10 MG PO DAILY, MG 01/19/24 Insulin Isophane & Reg (Human) (Humulin 70/30 (70-30) 100 Unit/ml) 1 Units/0.01 Ml Inj, 14 UNITS SC BIDAC, INJ INJECT 14 UNITS UNDER THE SKIN 2 TIMES DAILY (BEFORE MEALS) 01/19/24 Atorvastatin Calcium (Lipitor) 40 Mg Tab, 40 MG PO QPM, TAB 01/19/24 Amlodipine Besylate (Amlodipine Besylate) 5 Mg Tab, 5 MG PO DAILY, MG 01/19/24 Memantine Hydrochloride (Memantine HCl) 10 Mg Tab, 10 MG PO BID, TAB 01/19/24 Current Medications Current Medications Medications (Trade) Dose Ordered Sig/Gold Route PRN Reason Start Time Stop Time Status Last Admin Acetaminophen (Tylenol Tablet) 650 mg Q6HP PRN PO PAIN SCALE 1-3 OR TEMP>100.4 12/20/24 22:00 Amlodipine Besylate (Norvasc Tablet) 5 mg DAILY PO 12/21/24 10:00 12/21/24 08:39 Insulin Human Isoph/Insulin Regular (HumuLIN 70/30) 14 units BIDAC SC 12/21/24 07:00 12/21/24 00:04 DC Sertraline HCl (Zoloft) 50 mg DAILY PO 12/21/24 10:00 12/21/24 08:40 Patient Own Medication 40 mg QPM PO 12/21/24 18:00 12/20/24 22:44 DC Patient Own Medication 10 mg DAILY PO 12/21/24 10:00 12/20/24 22:44 DC Patient Own Medication 10 mg DAILY PO 12/21/24 10:00 12/20/24 22:44 DC Patient Own Medication 10 mg BID PO 12/20/24 22:00 12/20/24 22:44 DC Pantoprazole Sodium (Protonix Tablet) 40 mg DAILY@0600 PO 12/21/24 06:00 Atorvastatin Calcium (Lipitor) 40 mg HS PO 12/21/24 22:00 Donepezil HCl (Aricept Tablet) 10 mg DAILY PO 12/21/24 10:00 12/21/24 08:39 Lisinopril (Zestril Tablet) 10 mg DAILY PO 12/21/24 10:00 12/21/24 08:40 Memantine (Namenda Tablet) 10 mg BID PO 12/21/24 10:00 12/21/24 08:40 Insulin Human Isoph/Insulin Regular (HumuLIN 70/30) 18 units BIDAC SC 12/21/24 07:00 12/21/24 07:39 DC Diagnostic Test (Pha) (Accu-Chek Comfort Curve T) 1 strip ACHS 12/21/24 07:00 12/21/24 07:12 Ceftriaxone Sodium 50 ml @ 100 mls/hr DAILY@09 IV 12/21/24 09:00 12/21/24 08:39 Sodium Chloride 1,000 ml @ 100 mls/hr Q10H IV 12/21/24 00:15 12/21/24 03:55 Patient Own Medication 1 BIDAC SC 12/21/24 07:39 Review of Systems 10 point review of systems negative except as per HPI Vital Signs Vital Signs Date Time Temp Pulse Resp B/P (MAP) Pulse Ox O2 Delivery O2 Flow Rate FiO2 12/21/24 09:24 98.3 47 16 130/56 (80) 92 98.3 12/21/24 08:00 Room Air* 0 21 Physical Exam General appearance: Alert only to name HEENT: Normal ENT inspection, pharynx normal, TMs normal Neck: Full range of motion, nontender, normal inspection Respiratory: Chest nontender, without accessory muscle use, no respiratory distress Cardiovascular: No edema, no JVD, normal peripheral pulses Gastrointestinal: Soft, nontender, no organomegaly. Musculoskeletal: Left lower extremity range of motion grossly limited with pain on slight movement, no calf tenderness, normal capillary refill, mild distal edema, neurovascularly intact. Skin: Dry, normal color, warm Lymphatic: No adenopathy Labs/Diagnostic Data Labs Test 12/21/24 06:21 12/21/24 05:54 12/21/24 00:00 12/20/24 23:00 Range/Units POC Glucose 209 H 70-106 mg/dl White Blood Count 6.1 # 4.4-10.8 10^3/uL Red Blood Count 3.69 L 4.0-5.20 10^6/uL Hemoglobin 11.4 L 12.2-16.2 g/dL Hematocrit 33.0 #L 36.0-46.0 % Mean Corpuscular Volume 89.3 80.0-100.0 fL Mean Corpuscular Hemoglobin 30.9 28.0-32.0 pg Mean Corpuscular Hemoglobin Concent 34.6 32.0-36.0 g/dL Red Cell Distribution Width 13.1 11.8-14.3 % Platelet Count 185 140-450 10^3/uL Mean Platelet Volume 8.9 6.9-10.8 fL Neutrophils (%) (Auto) 58.0 37.0-80.0 % Lymphocytes (%) (Auto) 31.3 10.0-50.0 % Monocytes (%) (Auto) 7.9 0.0-12.0 % Eosinophils (%) (Auto) 2.1 0.0-7.0 % Basophils (%) (Auto) 0.7 0.0-2.0 % Neutrophils # (Auto) 3.6 1.6-8.6 10 ^3/uL Lymphocytes # (Auto) 1.9 0.4-5.4 10 ^3/uL Monocytes # (Auto) 0.5 0-1.3 10 ^3/uL Eosinophils # (Auto) 0.1 0-0.8 10 ^3/uL Basophils # (Auto) 0 0-0.2 10 ^3/uL Nucleated Red Blood Cells 0.1 % Sodium Level 139 136-145 mmol/L Potassium Level 3.7 3.5-5.1 mmol/L Chloride Level 107 98-107 mmol/L Carbon Dioxide Level 25 20-31 mmol/L Anion Gap 7 5-15 Blood Urea Nitrogen 13 9-23 mg/dL Creatinine 0.74 0.550-1.02 mg/dL Glomerular Filtration Rate Calc 79 >90 mL/min BUN/Creatinine Ratio 17.6 10.0-20.0 Serum Glucose 199 H 74-106 mg/dL Lactic Acid Level 1.1 0.4-2.0 mmol/L Calcium Level 8.9 8.7-10.4 mg/dL Magnesium Level 2.2 1.6-2.6 mg/dL Total Bilirubin 0.3 0.2-1.0 mg/dL Aspartate Amino Transferase (AST) 26 13-40 U/L Alanine Aminotransferase (ALT) 36 7-40 U/L Alkaline Phosphatase 92 46-116 U/L Total Protein 5.6 L 5.7-8.2 g/dL Albumin 3.3 3.2-4.8 g/dL SARS-CoV-2 Antigen (Rapid) Negative NEGATIVE Urine Color Light-orange Yellow Urine Clarity Ex.turbid Clear Urine pH 5.5 5.0-9.0 Urine Specific [place] 1.017 1.001-1.035 Urine Protein 1+ H Negative Urine Ketones Negative Negative Urine Blood Negative Negative /uL Urine Nitrite Negative Negative Urine Bilirubin Negative Negative Urine Urobilinogen Normal Negative mg/dL Urine Leukocyte Esterase 2+ Negative /uL Urine RBC 32 0 - 4 /hpf Urine WBC Clumps Present None Seen /hpf Urine Microscopic WBC 111 H 0-5 /HPF Urine Squamous Epithelial Cells Few <5 /hpf Urine Bacteria None seen None Seen /hpf Urine Mucus Few None Seen Urine Glucose 2+ H Normal mg/dL Test 12/20/24 20:43 12/20/24 19:33 Range/Units Troponin I High Sensitivity 5 </=34 ng/L Hemoglobin A1c 9.0 H <5.7 % A1C B-Type Natriuretic Peptide 35.44 0-100 pg/mL Vitamin D 25-Hydroxy 37.9 30.0-100 ng/mL Thyroid Stimulating Hormone (TSH) 4.96 H 0.55-4.78 uIU/mL Left tib-fib x-ray reviewed and demonstrated: Left total knee arthroplasty is noted in place. Displaced proximal fibular fracture. Displaced spiral fracture of the distal 3rd of the left tibia. Distal fibula not well seen Assessment Left distal tibia shaft fracture Plan/Recommendation I had a lengthy discussion with the patient's son regarding nonoperative versus operative management of her fracture and after discussing her case with Dr. Champion, and given that the patient's son reports that the patient was ambulating with the assistance before this most recent incident and wants to try and maintain her physical activity we have recommended an ORIF of her left tibial shaft fracture. I discussed all of the risks and complications involved with surgery including but not limited to bleeding, infection, nerve injury, chronic pain, nonunion, malunion, need for further surgery, blood clots, DVT, PE, cardiac and pulmonary complications, and even . Patient's son understood and agreed to proceed with the surgery. We will plan to undergo Monday pending schedule and if patient remains medically stable and is cleared for surgery. Thank you for allowing us to participate in the care of your patient. Plan discussed with: Patient, Son LOZATORREY Epperson Dec 21, 2024 11:13
--- NOTE | 2024-12-21 16:00 | DVHPN2 ---
Subjective The patient is seen and examined at bedside. The patient complained of severe pain in her leg. The patient said the morphine did not help her. She gets morphine 2 mg every 6 hours as needed for pain Reviewed: Care Plan, H&P, Labs, Medications, Previous Orders, Radiology Changes from previous H/P or p: No Changes Objective Vitals Vital Signs Date Time Temp Pulse Resp B/P (MAP) Pulse Ox O2 Delivery O2 Flow Rate FiO2 12/21/24 13:00 99.6 57 16 133/67 (89) 96 99.6 12/21/24 08:00 Room Air* 0 21 Intake/Output Intake and Output 12/21/24 07:00 Intake Total 0 ml Output Total 0 ml Balance 0 ml Intake Oral 0 ml Output Urine Total 0 ml General Appearance: Alert, mild distress HEENT: PERRLA, EOMI, Mucous membr. moist/pink Neck: Supple Lungs: Clear to auscultation, Normal air movement Cardiovascular: Regular rate, Normal S1, Normal S2, No murmurs, Gallops, Rubs Abdomen: Normal bowel sounds, Soft, No tenderness Neuro: Cranial nerves 3-12 NL Psych/Mental Status: Mental status NL Medications Current Medications Medications Dose Ordered Sig/Gold Route Start Time Stop Time Status Last Admin Dose Admin Acetaminophen 650 mg Q6HP PRN PO 12/20/24 22:00 Amlodipine Besylate 5 mg DAILY PO 12/21/24 10:00 12/21/24 08:39 5 MG Sertraline HCl 50 mg DAILY PO 12/21/24 10:00 12/21/24 08:40 50 MG Pantoprazole Sodium 40 mg DAILY@0600 PO 12/21/24 06:00 Atorvastatin Calcium 40 mg HS PO 12/21/24 22:00 Donepezil HCl 10 mg DAILY PO 12/21/24 10:00 12/21/24 08:39 10 MG Lisinopril 10 mg DAILY PO 12/21/24 10:00 12/21/24 08:40 10 MG Memantine 10 mg BID PO 12/21/24 10:00 12/21/24 08:40 10 MG Diagnostic Test (Pha) 1 strip ACHS 12/21/24 07:00 12/21/24 11:41 1 STRIP Ceftriaxone Sodium 50 ml @ 100 mls/hr DAILY@09 IV 12/21/24 09:00 12/21/24 08:39 100 MLS/HR Sodium Chloride 1,000 ml @ 100 mls/hr Q10H IV 12/21/24 00:15 12/21/24 03:55 100 MLS/HR Patient Own Medication 1 BIDAC SC 12/21/24 07:39 Laboratory Results Laboratory Tests 12/21/24 05:54 Chemistry Test 12/20/24 19:33 12/21/24 05:54 Albumin 3.6 g/dL (3.2-4.8) 3.3 g/dL (3.2-4.8) Calcium Level 8.8 mg/dL (8.7-10.4) 8.9 mg/dL (8.7-10.4) Magnesium Level 1.8 mg/dL (1.6-2.6) 2.2 mg/dL (1.6-2.6) Total Protein 5.9 g/dL (5.7-8.2) 5.6 g/dL (5.7-8.2) L Cardiac Markers Test 12/20/24 19:33 B-Type Natriuretic Peptide 35.44 pg/mL (0-100) LFT Test 12/20/24 19:33 12/21/24 05:54 Alanine Aminotransferase (ALT) 49 U/L (7-40) H 36 U/L (7-40) Alkaline Phosphatase 104 U/L (46-116) 92 U/L (46-116) Aspartate Amino Transferase (AST) 35 U/L (13-40) 26 U/L (13-40) Total Bilirubin 0.4 mg/dL (0.2-1.0) 0.3 mg/dL (0.2-1.0) HgA1c, TSH Test 12/20/24 19:33 Hemoglobin A1c 9.0 % A1C (<5.7) H Thyroid Stimulating Hormone (TSH) 4.96 uIU/mL (0.55-4.78) H Urinalysis Test 12/20/24 23:00 Urine Color Light-orange (Yellow) Urine Clarity Ex.turbid (Clear) Urine pH 5.5 (5.0-9.0) Urine Specific [place] 1.017 (1.001-1.035) Urine Protein 1+ (Negative) H Urine Ketones Negative (Negative) Urine Blood Negative /uL (Negative) Urine Nitrite Negative (Negative) Urine Bilirubin Negative (Negative) Urine Urobilinogen Normal mg/dL (Negative) Urine Leukocyte Esterase 2+ /uL (Negative) Urine RBC 32 /hpf (0 - 4) Urine WBC Clumps Present /hpf (None Seen) Urine Microscopic WBC 111 /HPF (0-5) H Urine Squamous Epithelial Cells Few /hpf (<5) Urine Bacteria None seen /hpf (None Seen) Urine Mucus Few (None Seen) Urine Glucose 2+ mg/dL (Normal) H Microbiology Microbiology Date/Time Source Procedure Growth Status 12/21/24 00:10 Nose MRSA Screen - Final Complete Labs and/or images reviewed: Labs reviewed by me Assessment/Plan Assessment/Plan # Acutely displaced spiral fracture of the distal 3rd of the left tibia status post fall # Left proximal fibular fracture # s/p fall # Left leg pain and swelling -x-ray of the left leg- displaced proximal fibular fracture, displaced spiral fracture of the distal 3rd of the left tibia -CT head-Chronic sequelae of microvascular disease and atrophic cortical volume loss. -CT cervical spine- No evidence of acute cervical spine fracture or traumatic malalignment. -continue pain medication as prescribed -pending orthopedic consult -NPO after midnight # Left leg swelling likely due to DVT. Acute versus chronic DVT -Doppler study of the left lower extremity-Partially occluding thrombus in the left popliteal vein. This may be chronic. The left trifurcation shows no flow. -ordered 1st dose of Lovenox -patient might need surgical intervention for left tibial fracture, we will let the primary team/orthopedic team decide regarding further anticoagulant and further management # Acute complicated cystitis -urinalysis revealed leukocyte esterase 2+, WBC 111 -pending urine culture -ordered ceftriaxone 1 g IV daily -continue IV normal saline as prescribed # Hypertension -resumed home medication amlodipine and lisinopril -monitor blood pressure #Diabetes mellitus type 2 with the hypoglycemia -HB A1C-9.0 -resumed home medication insulin Humulin 70/30 - Accu check as recommended # history of Cecal carcinoma, status post surgical intervention -follow up outpatient with primary care physician # Alzheimer's dementia -CT head negative for acute intracranial hemorrhage or infarction -resumed home medication memantine and donepezil Continuing current management. Appreciate orthopedic surgeon input. Waiting for nurse epidemiologist to see the patient. I am going to increase her morphine to 2 mg IV every 3 hours as needed for severe pain. The patient is really in distress because of pain. Waiting for surgery if cleared by nurse epidemiologist's. This medical document was created using an electronic medical record system with [employer] direct computerized dictation system. Although this document has been carefully reviewed, there may still be some phonetic and typographical errors. These areas are purely typographical due to imperfections of the software programs, and do not reflect any compromise in the patient's medical care. Plan discussed with: Patient My Orders Orders - MEEK MONIQUE MD Procedure Category Date Status Time * Dietary Consult CONS 12/21/24 Transmitted 14:18 Cleanse Wound With OSBALDO 12/21/24 In Process Mild Soap A 14:19 Date of Service: Dec 21, 2024 Billing Provider: MEEK MONIQUE MD Common Visit Codes: [id number] INP/OBS CARE(HIGH) MEEK MONIQUE MD Dec 21, 2024 16:00
[2024-12-21] MEDS: MORPHINE SULFATE INJ 2 MG/ml SYRG IV ONE (16:44)
--- NOTE | 2024-12-21 17:09 | DVHINCON2 ---
Date Seen: Dec 21, 2024 Referring Physician FILI Giles Reason for Consultation Preprocedural cardiovascular evaluation History of Present Illness 84-year-old female with a history of hypertension, type 2 diabetes, hyperlipidemia, Alzheimer's dementia, and cecal carcinoma, presents to the emerg ency department after a mechanical fall. She was found to have a left distal tibia shaft fracture and is being evaluated for surgical repair. Dinkey Operator Slate consulted for perioperative cardiac clearance. The patient is alert and oriented, but poor historian. She denies chest pain, shortness of breath, orthopnea, palpitations, or prior syncope. No known history of coronary artery disease or congestive heart failure. No recent hospitalization for cardiac issue. Functional status is unclear due to baseline cognitive impairment. Past Medical History As stated in HPI Past Surgical History Left knee surgery, left hip surgery as per son, surgical intervention for cecal carcinoma Family History: Patient reports no known family medical history. Family History Reviewed, non-contributory to the management of this case. Social History The patient lives at home, denies smoking, alcohol or illicit drugs abuse. Allergies: Coded Allergies: NO KNOWN ALLERGIES (Unverified , 01/18/24) Home Meds Active Scripts Nitrofurantoin (Macrodantin) 50 Mg Cap, 1 CAP PO BID, #14 CAP Prov:MEEK MONIQUE MD 01/31/24 Enoxaparin Sodium (Enoxaparin Sodium) 30 Mg/0.3 Ml Inj, 30 MG SC DAILY for 21 Days, #21 INJ Prov:CLAUDIA ARCHIBALD MD 01/25/24 Hydrocodone-Acetaminophen (Hydrocodone/Acetaminophen 5-325 mg) 1 Tab Tab, 1 TAB PO Q6HP PRN, #20 TAB Prov:CLAUDIA ARCHIBALD MD 01/24/24 Nitrofurantoin Monohydrate Mac (Macrobid) 100 Mg Cap, 100 MG PO BID for 7 Days, #14 CAP Prov:CLAUDIA ARCHIBALD MD 01/24/24 Reported Medications Nitrofurantoin (Nitrofurantoin Macrocryst) 100 Mg Cap, 1 CAP PO BID 01/31/24 Amlodipine Besylate (Amlodipine Besylate) 10 Mg Tab, TAB PO 01/31/24 Atorvastatin Calcium (ATORVASTATIN CALCIUM) 40 Mg Tab, 1 TAB PO DAILY 01/31/24 Nitrofurantoin Monohyd Macro (Nitrofurantoin Monohydrat) 100 Mg Cap, 1 CAP PO BID 01/31/24 Sertraline HCl (Sertraline HCl) 50 Mg Tab, 1 TAB PO DAILY 01/31/24 Sertraline Hcl (Sertraline Hcl) 50 Mg Tab, 50 MG PO DAILY, MG 01/19/24 Lisinopril (Lisinopril) 10 Mg Tab, 10 MG PO DAILY, MG 01/19/24 Donepezil Hydrochloride (DONEPEZIL HCL) 10 Mg Tab, 10 MG PO DAILY, MG 01/19/24 Insulin Isophane & Reg (Human) (Humulin 70/30 (70-30) 100 Unit/ml) 1 Units/0.01 Ml Inj, 14 UNITS SC BIDAC, INJ INJECT 14 UNITS UNDER THE SKIN 2 TIMES DAILY (BEFORE MEALS) 01/19/24 Atorvastatin Calcium (Lipitor) 40 Mg Tab, 40 MG PO QPM, TAB 01/19/24 Amlodipine Besylate (Amlodipine Besylate) 5 Mg Tab, 5 MG PO DAILY, MG 01/19/24 Memantine Hydrochloride (Memantine HCl) 10 Mg Tab, 10 MG PO BID, TAB 01/19/24 Current Medications Current Medications Medications (Trade) Dose Ordered Sig/Gold Route PRN Reason Start Time Stop Time Status Last Admin Acetaminophen (Tylenol Tablet) 650 mg Q6HP PRN PO PAIN SCALE 1-3 OR TEMP>100.4 12/20/24 22:00 Amlodipine Besylate (Norvasc Tablet) 5 mg DAILY PO 12/21/24 10:00 12/21/24 08:39 Insulin Human Isoph/Insulin Regular (HumuLIN 70/30) 14 units BIDAC SC 12/21/24 07:00 12/21/24 00:04 DC Sertraline HCl (Zoloft) 50 mg DAILY PO 12/21/24 10:00 12/21/24 08:40 Patient Own Medication 40 mg QPM PO 12/21/24 18:00 12/20/24 22:44 DC Patient Own Medication 10 mg DAILY PO 12/21/24 10:00 12/20/24 22:44 DC Patient Own Medication 10 mg DAILY PO 12/21/24 10:00 12/20/24 22:44 DC Patient Own Medication 10 mg BID PO 12/20/24 22:00 12/20/24 22:44 DC Pantoprazole Sodium (Protonix Tablet) 40 mg DAILY@0600 PO 12/21/24 06:00 Atorvastatin Calcium (Lipitor) 40 mg HS PO 12/21/24 22:00 Donepezil HCl (Aricept Tablet) 10 mg DAILY PO 12/21/24 10:00 12/21/24 08:39 Lisinopril (Zestril Tablet) 10 mg DAILY PO 12/21/24 10:00 12/21/24 08:40 Memantine (Namenda Tablet) 10 mg BID PO 12/21/24 10:00 12/21/24 08:40 Insulin Human Isoph/Insulin Regular (HumuLIN 70/30) 18 units BIDAC SC 12/21/24 07:00 12/21/24 07:39 DC Diagnostic Test (Pha) (Accu-Chek Comfort Curve T) 1 strip ACHS 12/21/24 07:00 12/21/24 11:41 Ceftriaxone Sodium 50 ml @ 100 mls/hr DAILY@09 IV 12/21/24 09:00 12/21/24 08:39 Sodium Chloride 1,000 ml @ 100 mls/hr Q10H IV 12/21/24 00:15 12/21/24 16:44 Patient Own Medication 1 BIDAC SC 12/21/24 07:39 Review of Systems Constitutional: No symptom reported Ears, Nose, & Throat: No symptom reported Eyes: No symptom reported Neurological: No symptoms reported Pulmonary/Respiratory: No symptom reported Cardiovascular: No symptom reported Gastrointestinal: No symptom reported Genitourinary: No symptom reported Musculoskeletal: Left hip pain Skin: No symptom reported Psychiatric: No symptom reported Endocrine: No symptom reported Hematologic/Lymphatic: No symptom reported Vital Signs Vital Signs Date Time Temp Pulse Resp B/P (MAP) Pulse Ox O2 Delivery O2 Flow Rate FiO2 12/21/24 16:44 61 16 130/69 12/21/24 13:00 99.6 96 99.6 12/21/24 08:00 Room Air* 0 21 Physical Exam INITIAL VITAL SIGNS: Reviewed by me GENERAL: Elderly female, alert but disoriented, resting in bed, mild distress due to pain HEAD: Head is normocephalic and atraumatic. EYES: EOMI, PERRL. No scleral icterus. No conjunctival injection. ENT: Moist mucous membranes. NECK: Supple, No masses, Full range of motion. RESPIRATORY: No tachypnea. Clear breath sounds bilaterally. No wheezing, rales, rhonchi. CV: Regular rate and rhythm. No murmurs, rubs, or gallops. GI/: Active bowel sounds, soft, nondistended, nontender. No guarding. No rebound. No masses. No CVA tenderness. INTEGUMENTARY: Left lower leg with swelling and tenderness over the distal tibia. No signs of compartment syndrome. NEUROLOGIC: Alert and oriented. Face is symmetric. Speech is normal. Moves all extremities equally. Labs/Diagnostic Data Labs Test 12/21/24 11:33 12/21/24 05:54 12/21/24 00:00 12/20/24 23:00 Range/Units POC Glucose 202 H 70-106 mg/dl White Blood Count 6.1 # 4.4-10.8 10^3/uL Red Blood Count 3.69 L 4.0-5.20 10^6/uL Hemoglobin 11.4 L 12.2-16.2 g/dL Hematocrit 33.0 #L 36.0-46.0 % Mean Corpuscular Volume 89.3 80.0-100.0 fL Mean Corpuscular Hemoglobin 30.9 28.0-32.0 pg Mean Corpuscular Hemoglobin Concent 34.6 32.0-36.0 g/dL Red Cell Distribution Width 13.1 11.8-14.3 % Platelet Count 185 140-450 10^3/uL Mean Platelet Volume 8.9 6.9-10.8 fL Neutrophils (%) (Auto) 58.0 37.0-80.0 % Lymphocytes (%) (Auto) 31.3 10.0-50.0 % Monocytes (%) (Auto) 7.9 0.0-12.0 % Eosinophils (%) (Auto) 2.1 0.0-7.0 % Basophils (%) (Auto) 0.7 0.0-2.0 % Neutrophils # (Auto) 3.6 1.6-8.6 10 ^3/uL Lymphocytes # (Auto) 1.9 0.4-5.4 10 ^3/uL Monocytes # (Auto) 0.5 0-1.3 10 ^3/uL Eosinophils # (Auto) 0.1 0-0.8 10 ^3/uL Basophils # (Auto) 0 0-0.2 10 ^3/uL Nucleated Red Blood Cells 0.1 % Sodium Level 139 136-145 mmol/L Potassium Level 3.7 3.5-5.1 mmol/L Chloride Level 107 98-107 mmol/L Carbon Dioxide Level 25 20-31 mmol/L Anion Gap 7 5-15 Blood Urea Nitrogen 13 9-23 mg/dL Creatinine 0.74 0.550-1.02 mg/dL Glomerular Filtration Rate Calc 79 >90 mL/min BUN/Creatinine Ratio 17.6 10.0-20.0 Serum Glucose 199 H 74-106 mg/dL Lactic Acid Level 1.1 0.4-2.0 mmol/L Calcium Level 8.9 8.7-10.4 mg/dL Magnesium Level 2.2 1.6-2.6 mg/dL Total Bilirubin 0.3 0.2-1.0 mg/dL Aspartate Amino Transferase (AST) 26 13-40 U/L Alanine Aminotransferase (ALT) 36 7-40 U/L Alkaline Phosphatase 92 46-116 U/L Total Protein 5.6 L 5.7-8.2 g/dL Albumin 3.3 3.2-4.8 g/dL SARS-CoV-2 Antigen (Rapid) Negative NEGATIVE Urine Color Light-orange Yellow Urine Clarity Ex.turbid Clear Urine pH 5.5 5.0-9.0 Urine Specific [place] 1.017 1.001-1.035 Urine Protein 1+ H Negative Urine Ketones Negative Negative Urine Blood Negative Negative /uL Urine Nitrite Negative Negative Urine Bilirubin Negative Negative Urine Urobilinogen Normal Negative mg/dL Urine Leukocyte Esterase 2+ Negative /uL Urine RBC 32 0 - 4 /hpf Urine WBC Clumps Present None Seen /hpf Urine Microscopic WBC 111 H 0-5 /HPF Urine Squamous Epithelial Cells Few <5 /hpf Urine Bacteria None seen None Seen /hpf Urine Mucus Few None Seen Urine Glucose 2+ H Normal mg/dL Test 12/20/24 20:43 12/20/24 19:33 Range/Units Troponin I High Sensitivity 5 </=34 ng/L Hemoglobin A1c 9.0 H <5.7 % A1C B-Type Natriuretic Peptide 35.44 0-100 pg/mL Vitamin D 25-Hydroxy 37.9 30.0-100 ng/mL Thyroid Stimulating Hormone (TSH) 4.96 H 0.55-4.78 uIU/mL Microbiology Date/Time Source Procedure Growth Status 12/21/24 00:10 Nose MRSA Screen - Final Complete PROCEDURE(s): CXR1 - CHEST XRAY 1 VIEW REASON: ?CHF/PNA ORDER NUMBER(s): [id number], ACCESSION NUMBER(s): [id number] CHEST RADIOGRAPH Indication: CHF/PNA Technique: Single frontal view of the chest was obtained COMPARISON: XY CHEST PORTABLE on DOS: 01/19/24 FINDINGS: Lines and Tubes: None Lungs: Clear Pleura: No effusion. No pneumothorax. Cardiomediastinal contours: Unremarkable Bones: Unremarkable IMPRESSION: No acute disease. Assessment Preprocedure cardiac evaluation * Elderly female with multiple cardiovascular risk factors (hypertension, diabetes type 2, hyperlipidemia, age) but no active cardiac symptoms or prior cardiac history suggestive of ischemic or decompensated heart disease. Under going urgent orthopedic surgery for tibial fracture requires risk stratification. Clinical risk appears low to intermittent per current assessment. Left hip fracture s/p fall Hypertension Hyperlipidemia Alzheimer's dementia Plan/Recommendation (Dr. Willams): Obtain a 12 lead ECG and transthoracic echocardiogram to assess for any underlying arrhythmias, ischemia, or structural heart disease. If both studies are unremarkable and no active cardiac concerns are identified, the patient will be deemed [id number] cardiac risk and cleared from a cardiac perspective for orthopedic surgery. Perioperative blood pressure and glucose control should be optimized. No further testing is warranted unless new symptoms arise. This medical document was created using an electronic medical record system with voice recognition software and computerized dictation system. Although this document has been carefully reviewed, there might still be some phonetic and ty pographical errors. Occasional wrong-word or ``sound-alike substitutions may have occurred due to the inherent limitations of voice recognition software. These areas are purely typographical due to imperfections of the software programs and do not reflect any compromise in the patient's medical care. Please read the chart carefully and recognize, using context, where these sub stitutions have occurred. Plan discussed with: Patient Plan discussed with: Patient NYHA Physical activity limitations: NA Date of Service: Dec 21, 2024 Billing Provider: ANSON WILLAMS Sr., MD Cardiology Common Codes: CONSULT ONLY Cardiology Consultation Codes: [id number] CONSULT <45MIN MARQUES SHIPMAN SQL REPORT WRITER Dec 21, 2024 17:09
[2024-12-21] MEDS ORDERED: PATIENTS OWN MEDICATION (Atorvastatin Calcium (Lipitor) 40 MG) PO SCH (18:00)
[2024-12-21] MEDS: HYDROcodone-ACET 5/325MG TAB PO PRN (18:47)
[2024-12-21] MEDS: INSULIN SC SCH (18:47)
[2024-12-21] MEDS: ATORVASTATIN 20 MG TAB PO SCH (21:59)
[2024-12-22] VITALS (7 sets, daily range): BP systolic 129–149; BP diastolic 59–79; PULSE 55–69; RESP 17–18; TEMP 97.3–98.4; O2SAT 98
--- NOTE | 2024-12-22 10:10 | ECG ---
[facility] Test Date: 2024-12-22 Test Time: 10:00:41 Pat Name: KINGSLEY HERZOG Department: Respiratoy Room: 0250T A Gender: F Efficiency Miner: BLANCO : 1940 Requested By: MARQUES SHIPMAN Order Number: [id number] Reading MD: Misael Devries Measurements Intervals [place] Rate: 63 P: -8 OR: 259 QRS: -52 QRSD: 118 T: 66 QT: 423 QTc: 434 Interpretive Statements Sinus rhythm Prolonged OR interval Incomplete RBBB and LAFB Anterior infarct, old Baseline wander in lead(s) V5 Electronically Signed On 12-25-2024 13:52:41 PDT by Misael Devries Please click the below link to view image of tracing.
--- NOTE | 2024-12-22 12:37 | DVHPN2 ---
Subjective The patient is seen and examined at bedside. Still complain of severe pain in the leg. Waiting for surgery. Reviewed: Care Plan, H&P, Labs, Medications, Previous Orders, Radiology Changes from previous H/P or p: No Changes Objective Vitals Vital Signs Date Time Temp Pulse Resp B/P (MAP) Pulse Ox O2 Delivery O2 Flow Rate FiO2 12/22/24 09:37 157/69 12/22/24 08:35 98.4 63 18 98 98.4 12/22/24 08:00 Room Air* 0 21 Intake/Output Intake and Output 12/22/24 07:00 Intake Total 1825 ml Output Total 1000 ml Balance 825 ml Intake Oral 775 ml IV Total 1050 ml Output Urine Total 1000 ml General Appearance: Alert, mild distress HEENT: Atraumatic, PERRLA, EOMI, Mucous membr. moist/pink Neck: Supple Lungs: Clear to auscultation, Normal air movement Cardiovascular: Regular rate, Normal S1, Normal S2 Psych/Mental Status: Mental status NL Medications Current Medications Medications Dose Ordered Sig/Gold Route Start Time Stop Time Status Last Admin Dose Admin Acetaminophen 650 mg Q6HP PRN PO 12/20/24 22:00 Amlodipine Besylate 5 mg DAILY PO 12/21/24 10:00 12/22/24 09:37 5 MG Sertraline HCl 50 mg DAILY PO 12/21/24 10:00 12/22/24 09:36 50 MG Pantoprazole Sodium 40 mg DAILY@0600 PO 12/21/24 06:00 12/22/24 06:10 40 MG Atorvastatin Calcium 40 mg HS PO 12/21/24 22:00 12/21/24 21:59 40 MG Donepezil HCl 10 mg DAILY PO 12/21/24 10:00 12/22/24 09:37 10 MG Lisinopril 10 mg DAILY PO 12/21/24 10:00 12/22/24 09:37 10 MG Memantine 10 mg BID PO 12/21/24 10:00 12/22/24 09:38 10 MG Diagnostic Test (Pha) 1 strip ACHS 12/21/24 07:00 12/22/24 11:05 1 STRIP Ceftriaxone Sodium 50 ml @ 100 mls/hr DAILY@09 IV 12/21/24 09:00 12/22/24 09:35 100 MLS/HR Sodium Chloride 1,000 ml @ 100 mls/hr Q10H IV 12/21/24 00:15 12/22/24 05:36 100 MLS/HR Morphine Sulfate 2 mg Q3HPRN PRN IV 12/21/24 17:15 Patient Own Medication 14 BIDAC SC 12/21/24 18:45 12/21/24 18:47 14 Acetaminophen/ Hydrocodone Bitart 1 tab Q4HPRN PRN PO 12/21/24 18:45 12/22/24 09:36 1 TAB Laboratory Results Laboratory Tests 12/21/24 05:54 Urinalysis Test 12/20/24 23:00 Urine Color Light-orange (Yellow) Urine Clarity Ex.turbid (Clear) Urine pH 5.5 (5.0-9.0) Urine Specific [place] 1.017 (1.001-1.035) Urine Protein 1+ (Negative) H Urine Ketones Negative (Negative) Urine Blood Negative /uL (Negative) Urine Nitrite Negative (Negative) Urine Bilirubin Negative (Negative) Urine Urobilinogen Normal mg/dL (Negative) Urine Leukocyte Esterase 2+ /uL (Negative) Urine RBC 32 /hpf (0 - 4) Urine WBC Clumps Present /hpf (None Seen) Urine Microscopic WBC 111 /HPF (0-5) H Urine Squamous Epithelial Cells Few /hpf (<5) Urine Bacteria None seen /hpf (None Seen) Urine Mucus Few (None Seen) Urine Glucose 2+ mg/dL (Normal) H Microbiology Microbiology Date/Time Source Procedure Growth Status 12/21/24 00:10 Nose MRSA Screen - Final Complete 12/20/24 23:00 Voided Urine Urine Culture - Preliminary Resulted Labs and/or images reviewed: Labs reviewed by me Assessment/Plan Assessment/Plan # Acutely displaced spiral fracture of the distal 3rd of the left tibia status post fall # Left proximal fibular fracture # s/p fall # Left leg pain and swelling -x-ray of the left leg- displaced proximal fibular fracture, displaced spiral fracture of the distal 3rd of the left tibia -CT head-Chronic sequelae of microvascular disease and atrophic cortical volume loss. -CT cervical spine- No evidence of acute cervical spine fracture or traumatic malalignment. -continue pain medication as prescribed -pending orthopedic consult -NPO after midnight # Left leg swelling likely due to DVT. Acute versus chronic DVT -Doppler study of the left lower extremity-Partially occluding thrombus in the left popliteal vein. This may be chronic. The left trifurcation shows no flow. -ordered 1st dose of Lovenox -patient might need surgical intervention for left tibial fracture, we will let the primary team/orthopedic team decide regarding further anticoagulant and further management # Acute complicated cystitis -urinalysis revealed leukocyte esterase 2+, WBC 111 -pending urine culture -ordered ceftriaxone 1 g IV daily -continue IV normal saline as prescribed # Hypertension -resumed home medication amlodipine and lisinopril -monitor blood pressure #Diabetes mellitus type 2 with the hypoglycemia -HB A1C-9.0 -resumed home medication insulin Humulin 70/30 - Accu check as recommended # history of Cecal carcinoma, status post surgical intervention -follow up outpatient with primary care physician # Alzheimer's dementia -CT head negative for acute intracranial hemorrhage or infarction -resumed home medication memantine and donepezil Continuing current management. Appreciate orthopedic surgeon input. Waiting for public records researcher to see the patient. I am going to increase her morphine to 2 mg IV every 3 hours as needed for severe pain. The patient is really in distress because of pain. Waiting for surgery if cleared by public records researcher's. This medical document was created using an electronic medical record system with [employer] direct computerized dictation system. Although this document has been carefully reviewed, there may still be some phonetic and typographical errors. These areas are purely typographical due to imperfections of the software programs, and do not reflect any compromise in the patient's medical care. Plan discussed with: Patient My Orders Orders - MEEK MONIQUE MD Procedure Category Date Status Time * Dietary Consult CONS 12/21/24 Transmitted 14:18 Cleanse Wound With OSBALDO 12/21/24 In Process Mild Soap A 14:19 Morphine Sulfate PHA 12/21/24 In Process Injection 17:15 Patients Own PHA 12/21/24 In Process Medication 18:45 Hydrocodone-Acet PHA 12/21/24 In Process 5/325mg Tab ([place] 18:45 Date of Service: Dec 22, 2024 Billing Provider: MEEK MONIQUE MD Common Visit Codes: [id number] INP/OBS CARE(HIGH) MEEK MONIQUE MD Dec 22, 2024 12:37
[2024-12-22] MEDS ORDERED: DEXTROSE (50%) 50ML SYRG IV PRN (13:15)
--- NOTE | 2024-12-22 16:52 | DVHSR ---
APPROVED REPORT EXAM: LIMITED Two-dimensional and M-mode echocardiogram with Doppler and color Doppler. Blood Pressure: 130/57 mmHg INDICATION Pre-Op RISK FACTORS Height: 5'7, Weight: 150 DIMENSIONS LVDd (3.8-5.7cm)LA (2D) (1.9-4.0cm)Aortic Root3.3 (2.0-3.7cm) LVDs (2.5-4.0cm)LA (MM) (1.9-4.0cm)Aortic Cusp Exc1.6 (1.5-2.0cm) EF (%) 55.0 (55-70%)Rt. Atrium (1.9-4.0cm)Asc. Aorta cm Mitral Valve MitralMitral Stenosis E/A ratio0.02D MVAcm2 Aortic Valve Aortic ValveAortic Stenosis V10.88m/Anjelica Mean GR.mmHg V21.07m/Anjelica Peak GR.5mmHg LVOT Diameter2.0 (1.8-2.4cm)Doppler AVA2.58cm2 Tricuspid Valve TR Velocity1.95m/s [id number] Other Information Quality : Technically LimitedRhythm : Technically limited study due to pt unable to move laying on right side hunched over Conclusion Technically limited study. Subcostal views obtained. Limited Doppler. On overall examination the chamber sizes appear to be within normal limits. Limited views reveal normal tricuspid and likely normal mitral valves. The aortic valve appears to b e slightly sclerotic but unremarkable. The pulmonic is not visualized. Left ventricular function appears preserved. EF is 65% with normal RV function. There is impaired d iastolic relaxation
[2024-12-22] MEDS: InsuLIN REG 1unit/0.01ml Soln (100units/ml) SC SCH (17:07)
[2024-12-22] MEDS: ACCU-CHEK COMFORT CURVE STRIP VI SCH (17:08)
[2024-12-23] VITALS (9 sets, daily range): BP systolic 105–151; BP diastolic 62–81; PULSE 59–83; RESP 17–20; TEMP 96.7–98.8; O2SAT 95–98
[2024-12-23] MEDS: MORPHINE SULFATE INJ 2 MG/ml SYRG IV PRN (06:31)
[2024-12-23 07:02] LABS: Hematocrit 31.4 % (36.0-46.0); Hemoglobin 11.0 g/dL (12.2-16.2); Mean Corpuscular Hemoglobin 31.3 pg (28.0-32.0); Mean Corpuscular Volume 89.0 fL (80.0-100.0); Nucleated Red Blood Cells % 0.0 %
[2024-12-23 07:14] LABS: Anion Gap 10 (5-15); Carbon Dioxide 25 mmol/L (20-31); Chloride 104 mmol/L (98-107); Potassium 4.6 mmol/L (3.5-5.1); Sodium 139 mmol/L (136-145)
[2024-12-23 07:15] LABS: Calcium 9.3 mg/dL (8.7-10.4)
[2024-12-23 07:20] LABS: BUN/Creatinine Ratio 21.8 (10.0-20.0); Blood Urea Nitrogen 17 mg/dL (9-23)
[2024-12-23 07:21] LABS: Glucose 199 mg/dL (74-106)
--- NOTE | 2024-12-23 09:02 | DVHPN2 ---
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 She is asymptomatic, denies any pain Vital signs are stable Reviewed: Care Plan, H&P, Labs, Medications, Previous Orders, Radiology Changes from previous H/P or p: Changes Objective Vitals Vital Signs Date Time Temp Pulse Resp B/P (MAP) Pulse Ox O2 Delivery O2 Flow Rate FiO2 12/23/24 08:36 96.7 59 18 140/68 (92) 95 96.7 12/22/24 20:00 Room Air* 0 21 Intake/Output Intake and Output 12/23/24 07:00 Intake Total 1350 ml Output Total 400 ml Balance 950 ml Intake Oral 0 ml IV Total 1350 ml Output Urine Total 400 ml General Appearance: Alert, mild distress HEENT: Atraumatic, PERRLA, EOMI, Mucous membr. moist/pink Neck: Supple Lungs: Clear to auscultation, Normal air movement Cardiovascular: Regular rate, Normal S1, Normal S2 Abdomen: Normal bowel sounds, Soft, No tenderness Neuro: Cranial nerves 3-12 NL Psych/Mental Status: Mental status NL Medications Current Medications Medications Dose Ordered Sig/Gold Route Start Time Stop Time Status Last Admin Dose Admin Acetaminophen 650 mg Q6HP PRN PO 12/20/24 22:00 Amlodipine Besylate 5 mg DAILY PO 12/21/24 10:00 12/22/24 09:37 5 MG Sertraline HCl 50 mg DAILY PO 12/21/24 10:00 12/22/24 09:36 50 MG Pantoprazole Sodium 40 mg DAILY@0600 PO 12/21/24 06:00 12/22/24 06:10 40 MG Atorvastatin Calcium 40 mg HS PO 12/21/24 22:00 12/22/24 21:11 40 MG Donepezil HCl 10 mg DAILY PO 12/21/24 10:00 12/22/24 09:37 10 MG Lisinopril 10 mg DAILY PO 12/21/24 10:00 12/22/24 09:37 10 MG Memantine 10 mg BID PO 12/21/24 10:00 12/22/24 21:11 10 MG Ceftriaxone Sodium 50 ml @ 100 mls/hr DAILY@09 IV 12/21/24 09:00 12/22/24 09:35 100 MLS/HR Sodium Chloride 1,000 ml @ 100 mls/hr Q10H IV 12/21/24 00:15 12/23/24 02:15 100 MLS/HR Morphine Sulfate 2 mg Q3HPRN PRN IV 12/21/24 17:15 12/23/24 06:31 2 MG Acetaminophen/ Hydrocodone Bitart 1 tab Q4HPRN PRN PO 12/21/24 18:45 12/22/24 21:11 1 TAB Diagnostic Test (Pha) 1 strip ACHS 12/22/24 17:00 12/23/24 06:32 1 STRIP Insulin Human Regular ACHS SC 12/22/24 17:00 12/23/24 06:33 3 UNITS Dextrose 50 ml UD PRN IV 12/22/24 13:15 Laboratory Results Laboratory Tests 12/23/24 06:00 Chemistry Test 12/23/24 06:00 Calcium Level 9.3 mg/dL (8.7-10.4) Urinalysis Test 12/20/24 23:00 Urine Color Light-orange (Yellow) Urine Clarity Ex.turbid (Clear) Urine pH 5.5 (5.0-9.0) Urine Specific [place] 1.017 (1.001-1.035) Urine Protein 1+ (Negative) H Urine Ketones Negative (Negative) Urine Blood Negative /uL (Negative) Urine Nitrite Negative (Negative) Urine Bilirubin Negative (Negative) Urine Urobilinogen Normal mg/dL (Negative) Urine Leukocyte Esterase 2+ /uL (Negative) Urine RBC 32 /hpf (0 - 4) Urine WBC Clumps Present /hpf (None Seen) Urine Microscopic WBC 111 /HPF (0-5) H Urine Squamous Epithelial Cells Few /hpf (<5) Urine Bacteria None seen /hpf (None Seen) Urine Mucus Few (None Seen) Urine Glucose 2+ mg/dL (Normal) H Microbiology Microbiology Date/Time Source Procedure Growth Status 12/21/24 00:10 Nose MRSA Screen - Final Complete 12/20/24 23:00 Voided Urine Urine Culture - Preliminary Resulted Assessment/Plan Assessment/Plan # Acutely displaced spiral fracture of the distal 3rd of the left tibia status post fall # Left proximal fibular fracture # s/p fall Left leg- displaced proximal fibular fracture, displaced spiral fracture of the distal 3rd of the left tibia Acute versus chronic DVT Acute complicated cystitis Hypertension Diabetes mellitus type 2 history of Cecal carcinoma, status post surgical intervention Alzheimer's dementia PLAN: The patient is scheduled for surgery for tomorrow NPO after midnight Rocephin IV for UTI Give Lovenox subcutaneously q.12 hours, hold tonight for surgery tomorrow IV fluids normal saline P.o. medications for hypertension Namenda and Aricept for dementia Full code The patient will likely need to go to a [facility] facility for rehab postoperatively The rest of the management will depend on the hospital course Plan discussed with: Patient, Son Date of Service: Dec 23, 2024 Billing Provider: CLAUDIA ARCHIBALD MD Common Visit Codes: NOT BILLABLE CLAUDIA ARCHIBALD MD Dec 23, 2024 09:02
[2024-12-23] MEDS: ENOXAPARIN SOD 80 MG/0.8ML SYRINGE SC SCH (11:52)
--- NOTE | 2024-12-23 12:22 | DVHPN2 ---
Progress Note - Dictate Date Seen: Dec 23, 2024 Medical Necessity Reason Pt with a Central, PICC or Fol: No Subjective Patient was lying comfortably in bed during my evaluation reports some left lower extremity pain and limited range of motion but is otherwise feeling well denying any other complaints or concerns during today's evaluation. vital signs Vital Sign Date Time Temp Pulse Resp B/P (MAP) Pulse Ox O2 Delivery O2 Flow Rate FiO2 12/23/24 09:22 146/68 12/23/24 08:36 96.7 59 18 95 96.7 12/23/24 08:00 Room Air* 0 21 Total Intake and Output 12/22/24 12/22/24 12/23/24 15:00 23:00 07:00 Intake Total 50 ml 500 ml 800 ml Output Total 200 ml 200 ml Balance 50 ml 300 ml 600 ml medications Current Medications Medications Dose Ordered Sig/Gold Route Start Time Stop Time Status Last Admin Dose Admin Acetaminophen 650 mg Q6HP PRN PO 12/20/24 22:00 Amlodipine Besylate 5 mg DAILY PO 12/21/24 10:00 12/23/24 09:22 5 MG Sertraline HCl 50 mg DAILY PO 12/21/24 10:00 12/23/24 09:21 50 MG Pantoprazole Sodium 40 mg DAILY@0600 PO 12/21/24 06:00 12/22/24 06:10 40 MG Atorvastatin Calcium 40 mg HS PO 12/21/24 22:00 12/22/24 21:11 40 MG Donepezil HCl 10 mg DAILY PO 12/21/24 10:00 12/23/24 09:21 10 MG Lisinopril 10 mg DAILY PO 12/21/24 10:00 12/23/24 09:20 10 MG Memantine 10 mg BID PO 12/21/24 10:00 12/23/24 09:21 10 MG Ceftriaxone Sodium 50 ml @ 100 mls/hr DAILY@09 IV 12/21/24 09:00 12/23/24 09:20 100 MLS/HR Sodium Chloride 1,000 ml @ 100 mls/hr Q10H IV 12/21/24 00:15 12/23/24 09:25 100 MLS/HR Morphine Sulfate 2 mg Q3HPRN PRN IV 12/21/24 17:15 12/23/24 06:31 2 MG Acetaminophen/ Hydrocodone Bitart 1 tab Q4HPRN PRN PO 12/21/24 18:45 12/23/24 11:41 1 TAB Diagnostic Test (Pha) 1 strip ACHS 12/22/24 17:00 12/23/24 11:48 1 STRIP Insulin Human Regular ACHS SC 12/22/24 17:00 12/23/24 11:49 6 UNITS Dextrose 50 ml UD PRN IV 12/22/24 13:15 Enoxaparin Sodium 70 mg Q12HR SC 12/23/24 10:00 12/23/24 22:01 12/23/24 11:52 70 MG objective General appearance: Alert only to name HEENT: Normal ENT inspection, pharynx normal, TMs normal Neck: Full range of motion, nontender, normal inspection Respiratory: Chest nontender, without accessory muscle use, no respiratory distress Cardiovascular: No edema, no JVD, normal peripheral pulses Gastrointestinal: Soft, nontender, no organomegaly. Musculoskeletal: Left lower extremity range of motion grossly limited with pain on slight movement, no calf tenderness, normal capillary refill, mild distal edema, neurovascularly intact. Skin: Dry, normal color, warm Lymphatic: No adenopathy laboratory and microbiology Laboratory Tests 12/23/24 06:00 Test 12/23/24 06:00 Range/Units Serum Glucose 199 H 74-106 mg/dL Assessment/Plan Left distal tibia shaft fracture I had a lengthy discussion with Dr. Champion who spoke with the patient's son and after discussing the risks and complications involved with her surgery considering her A1c was nine and has unresolved diarrhea we will be requesting a GI consult for further evaluation and we will continue treating the patient nonoperatively and will place the patient in a well-padded long leg cast. I advised the patient to remain nonweightbearing on her left lower extremity and advised her to follow up with our office in six weeks for further evaluation. Please do not hesitate to contact ortho again for any changes in the patient's symptoms for further questions or concerns. Dr Champion: I had a very long discussion with the son on 12/23/2024. I Mentioned benefits, risks and treatment alternatives. Surgical complications including neurovascular injury, infection, nonunion, malunion, high-risk of for morbidity and mortality was discussed with the patient. The patient has active diarrhea and A1c of 9.0. She is also 84 years old, severely demented and unable to make decisions on her own. Her baseline is minimal ambulation, she can not walk without support and barely stands. Pros of surgery include earlier mobilization, ability to bear some weight on the extremity, decreased risk of other complications such as DVT, pulmonary embolism, bedsores, pneumonia and others. Cons including higher risk of infection and wound complications. Cast option, boot option was also discussed. High risk of morbidity and mortality at this age was discussed in detail. After thorough discussion, the son decided to withhold surgery for now, at least until her diarrhea is improved and A1c improves. It is likely that the fracture may go into nonunion and future reduction may be very difficult and outcomes may be compromised. We will revisit her medical condition in 1-2 weeks and see if he would like to proceed with surgery. Conservative management with palliative care for the fracture was also discussed, considering her baseline level. We put the patient in a long leg very well-padded cast for pain control and for ease of mobilization. Dietary Evaluation Review Comments: 1) Tam 1 pk BID, Vit C 500mg BID, MVI w/ minerals 1 tab daily, zinc sulfate 220mg BID x 10days 2) Glucerna 240ml BID 3) Monitor PO intake, lab values, I/O Expected Outcomes/Goals: To meet >75% estimated needs Wound to improve Lab values to improve Fu 3-5 days Plan discussed with: Patient, Son TORREY LOZA Merary HERNANDEZ Dec 23, 2024 12:22 ELEANOR CHAMPION MD Dec 25, 2024 07:57
[2024-12-24] VITALS (7 sets, daily range): BP systolic 131–147; BP diastolic 63–71; PULSE 54–71; RESP 17–20; TEMP 97.6–98.8; O2SAT 95–98
--- NOTE | 2024-12-24 09:01 | DVHPN2 ---
Subjective The surgery was canceled by Orthopedic surgery due to the patient being high risk They recommended conservative treatment with a cast and to go home and follow up as an outpatient in 6 weeks Reviewed: Care Plan, H&P, Labs, Medications, Previous Orders, Radiology Changes from previous H/P or p: Changes Objective Vitals Vital Signs Date Time Temp Pulse Resp B/P (MAP) Pulse Ox O2 Delivery O2 Flow Rate FiO2 12/24/24 03:22 98.6 61 17 140/63 (88) 96 98.6 12/23/24 20:00 Room Air* 0 21 Intake/Output Intake and Output 12/24/24 07:00 Intake Total 2465 ml Balance 2465 ml Intake Oral 1615 ml IV Total 850 ml # Voids 7 General Appearance: Alert, mild distress HEENT: Atraumatic, PERRLA, EOMI, Mucous membr. moist/pink Neck: Supple Lungs: Clear to auscultation, Normal air movement Cardiovascular: Regular rate, Normal S1, Normal S2 Abdomen: Normal bowel sounds, Soft, No tenderness Neuro: Cranial nerves 3-12 NL Psych/Mental Status: Mental status NL Medications Current Medications Medications Dose Ordered Sig/Gold Route Start Time Stop Time Status Last Admin Dose Admin Acetaminophen 650 mg Q6HP PRN PO 12/20/24 22:00 Amlodipine Besylate 5 mg DAILY PO 12/21/24 10:00 12/23/24 09:22 5 MG Sertraline HCl 50 mg DAILY PO 12/21/24 10:00 12/23/24 09:21 50 MG Pantoprazole Sodium 40 mg DAILY@0600 PO 12/21/24 06:00 12/24/24 06:16 40 MG Atorvastatin Calcium 40 mg HS PO 12/21/24 22:00 12/23/24 21:00 40 MG Donepezil HCl 10 mg DAILY PO 12/21/24 10:00 12/23/24 09:21 10 MG Lisinopril 10 mg DAILY PO 12/21/24 10:00 12/23/24 09:20 10 MG Memantine 10 mg BID PO 12/21/24 10:00 12/23/24 21:01 10 MG Ceftriaxone Sodium 50 ml @ 100 mls/hr DAILY@09 IV 12/21/24 09:00 12/24/24 08:16 100 MLS/HR Sodium Chloride 1,000 ml @ 100 mls/hr Q10H IV 12/21/24 00:15 12/23/24 21:03 100 MLS/HR Morphine Sulfate 2 mg Q3HPRN PRN IV 12/21/24 17:15 12/23/24 15:10 2 MG Acetaminophen/ Hydrocodone Bitart 1 tab Q4HPRN PRN PO 12/21/24 18:45 12/23/24 21:01 1 TAB Diagnostic Test (Pha) 1 strip ACHS 12/22/24 17:00 12/24/24 06:16 1 STRIP Insulin Human Regular ACHS SC 12/22/24 17:00 12/24/24 06:17 3 UNITS Dextrose 50 ml UD PRN IV 12/22/24 13:15 Laboratory Results Laboratory Tests 12/23/24 06:00 Urinalysis Test 12/20/24 23:00 Urine Color Light-orange (Yellow) Urine Clarity Ex.turbid (Clear) Urine pH 5.5 (5.0-9.0) Urine Specific [place] 1.017 (1.001-1.035) Urine Protein 1+ (Negative) H Urine Ketones Negative (Negative) Urine Blood Negative /uL (Negative) Urine Nitrite Negative (Negative) Urine Bilirubin Negative (Negative) Urine Urobilinogen Normal mg/dL (Negative) Urine Leukocyte Esterase 2+ /uL (Negative) Urine RBC 32 /hpf (0 - 4) Urine WBC Clumps Present /hpf (None Seen) Urine Microscopic WBC 111 /HPF (0-5) H Urine Squamous Epithelial Cells Few /hpf (<5) Urine Bacteria None seen /hpf (None Seen) Urine Mucus Few (None Seen) Urine Glucose 2+ mg/dL (Normal) H Microbiology Microbiology Date/Time Source Procedure Growth Status 12/21/24 00:10 Nose MRSA Screen - Final Complete 12/20/24 23:00 Voided Urine Urine Culture - Final Complete Assessment/Plan Assessment/Plan # Acutely displaced spiral fracture of the distal 3rd of the left tibia status post fall # Left proximal fibular fracture # s/p fall Left leg- displaced proximal fibular fracture, displaced spiral fracture of the distal 3rd of the left tibia Acute versus chronic DVT Acute complicated cystitis Hypertension Diabetes mellitus type 2 history of Cecal carcinoma, status post surgical intervention Alzheimer's dementia PLAN: The patient is scheduled for surgery for tomorrow NPO after midnight Rocephin IV for UTI Give Lovenox subcutaneously q.12 hours, hold tonight for surgery tomorrow IV fluids normal saline P.o. medications for hypertension Namenda and Aricept for dementia Full code The patient will likely need to go to a senior living facility for rehab postoperatively The rest of the management will depend on the hospital course 12/24/2024: Surgery was canceled due to the patient being high risk Conservative treatment is recommended by Orthopedic surgery A cast was advised and discharged home for outpatient follow up in 6 weeks DVT of the left leg: Lovenox was given x2 doses, start the patient on p.o. anticoagulant, Eliquis Discussed with the son, he understands the plan, he says the patient has diarrhea since she received meropenem a while ago and he says she is still having it right now Reported diarrhea by son: The patient does not have diarrhea right now, we will watch Discontinue the IV fluids Resume the diet Nonweightbearing on left lower extremity per ortho recommendations Discharge planning to SNF Rodrig[facility] catheter in place Plan discussed with: Patient, Other My Orders Orders - CLAUDIA ARCHIBALD MD Procedure Category Date Status Time * Wound Consult CONS 12/23/24 Transmitted Date of Service: Dec 24, 2024 Billing Provider: CLAUDIA ARCHIBALD MD Common Visit Codes: NOT BILLABLE CLAUDIA ARCHIBALD MD Dec 24, 2024 09:01
[2024-12-24] MEDS: APIXABAN 5 MG TAB PO SCH (09:35)
[2024-12-25] VITALS (8 sets, daily range): BP systolic 123–146; BP diastolic 60–73; PULSE 60–82; RESP 16–18; TEMP 97.7–98.2; O2SAT 94–98
--- NOTE | 2024-12-25 09:12 | DVHPN2 ---
Subjective NO NEW COMPLAINTS AWAITING PHYSICAL THERAPY EVALUATION THE PATIENT WILL NEED TO GO TO SNF Reviewed: Care Plan, H&P, Labs, Medications, Previous Orders, Radiology Changes from previous H/P or p: Changes Objective Vitals Vital Signs Date Time Temp Pulse Resp B/P (MAP) Pulse Ox O2 Delivery O2 Flow Rate FiO2 12/25/24 09:03 98.2 60 18 139/73 (95) 97 98.2 12/25/24 08:00 Room Air* 0 21 Intake/Output Intake and Output 12/25/24 07:00 Intake Total 1670 ml Output Total 2355 ml Balance -685 ml Intake Oral 1620 ml IV Total 50 ml Output Urine Total 2350 ml Stool Total 5 ml # Bowel Movements 1 General Appearance: Alert, mild distress HEENT: Atraumatic, PERRLA, EOMI, Mucous membr. moist/pink Neck: Supple Lungs: Clear to auscultation, Normal air movement Cardiovascular: Regular rate, Normal S1, Normal S2 Abdomen: Normal bowel sounds, Soft, No tenderness Neuro: Cranial nerves 3-12 NL Psych/Mental Status: Mental status NL Medications Current Medications Medications Dose Ordered Sig/Godl Route Start Time Stop Time Status Last Admin Dose Admin Acetaminophen 650 mg Q6HP PRN PO 12/20/24 22:00 Amlodipine Besylate 5 mg DAILY PO 12/21/24 10:00 12/24/24 09:36 5 MG Sertraline HCl 50 mg DAILY PO 12/21/24 10:00 12/24/24 09:35 50 MG Pantoprazole Sodium 40 mg DAILY@0600 PO 12/21/24 06:00 12/25/24 05:09 40 MG Atorvastatin Calcium 40 mg HS PO 12/21/24 22:00 12/24/24 21:05 40 MG Donepezil HCl 10 mg DAILY PO 12/21/24 10:00 12/24/24 09:35 10 MG Lisinopril 10 mg DAILY PO 12/21/24 10:00 12/24/24 09:36 10 MG Memantine 10 mg BID PO 12/21/24 10:00 12/24/24 21:05 10 MG Ceftriaxone Sodium 50 ml @ 100 mls/hr DAILY@09 IV 12/21/24 09:00 12/24/24 08:16 100 MLS/HR Morphine Sulfate 2 mg Q3HPRN PRN IV 12/21/24 17:15 12/23/24 15:10 2 MG Acetaminophen/ Hydrocodone Bitart 1 tab Q4HPRN PRN PO 12/21/24 18:45 12/24/24 23:49 1 TAB Diagnostic Test (Pha) 1 strip ACHS 12/22/24 17:00 12/25/24 06:07 1 STRIP Insulin Human Regular ACHS SC 12/22/24 17:00 12/24/24 21:11 4 UNITS Dextrose 50 ml UD PRN IV 12/22/24 13:15 Apixaban 5 mg BID PO 12/24/24 10:00 12/24/24 21:06 5 MG Laboratory Results Laboratory Tests 12/23/24 06:00 Urinalysis Test 12/20/24 23:00 Urine Color Light-orange (Yellow) Urine Clarity Ex.turbid (Clear) Urine pH 5.5 (5.0-9.0) Urine Specific [place] 1.017 (1.001-1.035) Urine Protein 1+ (Negative) H Urine Ketones Negative (Negative) Urine Blood Negative /uL (Negative) Urine Nitrite Negative (Negative) Urine Bilirubin Negative (Negative) Urine Urobilinogen Normal mg/dL (Negative) Urine Leukocyte Esterase 2+ /uL (Negative) Urine RBC 32 /hpf (0 - 4) Urine WBC Clumps Present /hpf (None Seen) Urine Microscopic WBC 111 /HPF (0-5) H Urine Squamous Epithelial Cells Few /hpf (<5) Urine Bacteria None seen /hpf (None Seen) Urine Mucus Few (None Seen) Urine Glucose 2+ mg/dL (Normal) H Microbiology Microbiology Date/Time Source Procedure Growth Status 12/21/24 00:10 Nose MRSA Screen - Final Complete 12/20/24 23:00 Voided Urine Urine Culture - Final Complete Assessment/Plan Assessment/Plan # Acutely displaced spiral fracture of the distal 3rd of the left tibia status post fall # Left proximal fibular fracture # s/p fall Left leg- displaced proximal fibular fracture, displaced spiral fracture of the distal 3rd of the left tibia Acute versus chronic DVT Acute complicated cystitis Hypertension Diabetes mellitus type 2 history of Cecal carcinoma, status post surgical intervention Alzheimer's dementia PLAN: The patient is scheduled for surgery for tomorrow NPO after midnight Rocephin IV for UTI Give Lovenox subcutaneously q.12 hours, hold tonight for surgery tomorrow IV fluids normal saline P.o. medications for hypertension Namenda and Aricept for dementia Full code The patient will likely need to go to a longterm facility for rehab postoperatively The rest of the management will depend on the hospital course 12/24/2024: Surgery was canceled due to the patient being high risk Conservative treatment is recommended by Orthopedic surgery A cast was advised and discharged home for outpatient follow up in 6 weeks DVT of the left leg: Lovenox was given x2 doses, start the patient on p.o. anticoagulant, Eliquis Discussed with the son, he understands the plan, he says the patient has diarrhea since she received meropenem a while ago and he says she is still having it right now Reported diarrhea by son: The patient does not have diarrhea right now, we will watch Discontinue the IV fluids Resume the diet Nonweightbearing on left lower extremity per ortho recommendations Discharge planning to SNF [facility] catheter in place 12/25/2024: PHYSICAL THERAPY EVALUATION ARRANGE SNF FOR REHAB DISCHARGE TO SNF ONCE A BED IS AVAILABLE Plan discussed with: Patient, Son My Orders Orders - CLAUDIA ARCHIBALD MD Procedure Category Date Status Time * [employer] Technician CONS 12/24/24 Transmitted Consult 15:46 Pt Request For Service PT 12/24/24 Logged 16:10 Date of Service: Dec 25, 2024 Billing Provider: CLAUDIA ARCHIBALD MD Common Visit Codes: NOT BILLABLE CLAUDIA ARCHIBALD MD Dec 25, 2024 09:12
--- NOTE | 2024-12-25 09:19 | DVHDS2 ---
Discharge Summary Date of Admission Dec 20, 2024 at 21:47 Date of Discharge: Dec 25, 2024 Labs/Diagnostic Data: Laboratory Results Test 12/25/24 05:10 12/23/24 06:00 12/21/24 05:54 12/21/24 00:00 POC Glucose 120 mg/dl (70-106) White Blood Count 6.1 10^3/uL (4.4-10.8) Red Blood Count 3.52 10^6/uL (4.0-5.20) Hemoglobin 11.0 g/dL (12.2-16.2) Hematocrit 31.4 % (36.0-46.0) Mean Corpuscular Volume 89.0 fL (80.0-100.0) Mean Corpuscular Hemoglobin 31.3 pg (28.0-32.0) Mean Corpuscular Hemoglobin Concent 35.2 g/dL (32.0-36.0) Red Cell Distribution Width 12.9 % (11.8-14.3) Platelet Count 164 10^3/uL (140-450) Mean Platelet Volume 9.3 fL (6.9-10.8) Neutrophils (%) (Auto) 66.4 % (37.0-80.0) Lymphocytes (%) (Auto) 25.4 % (10.0-50.0) Monocytes (%) (Auto) 5.7 % (0.0-12.0) Eosinophils (%) (Auto) 1.8 % (0.0-7.0) Basophils (%) (Auto) 0.7 % (0.0-2.0) Neutrophils # (Auto) 4.0 10 ^3/uL (1.6-8.6) Lymphocytes # (Auto) 1.5 10 ^3/uL (0.4-5.4) Monocytes # (Auto) 0.3 10 ^3/uL (0-1.3) Eosinophils # (Auto) 0.1 10 ^3/uL (0-0.8) Basophils # (Auto) 0 10 ^3/uL (0-0.2) Nucleated Red Blood Cells 0.0 % Sodium Level 139 mmol/L (136-145) Potassium Level 4.6 mmol/L (3.5-5.1) Chloride Level 104 mmol/L (98-107) Carbon Dioxide Level 25 mmol/L (20-31) Anion Gap 10 (5-15) Blood Urea Nitrogen 17 mg/dL (9-23) Creatinine 0.78 mg/dL (0.550-1.02) Glomerular Filtration Rate Calc 74 mL/min (>90) BUN/Creatinine Ratio 21.8 (10.0-20.0) Serum Glucose 199 mg/dL (74-106) Calcium Level 9.3 mg/dL (8.7-10.4) Lactic Acid Level 1.1 mmol/L (0.4-2.0) Magnesium Level 2.2 mg/dL (1.6-2.6) Total Bilirubin 0.3 mg/dL (0.2-1.0) Aspartate Amino Transferase (AST) 26 U/L (13-40) Alanine Aminotransferase (ALT) 36 U/L (7-40) Alkaline Phosphatase 92 U/L (46-116) Total Protein 5.6 g/dL (5.7-8.2) Albumin 3.3 g/dL (3.2-4.8) SARS-CoV-2 Antigen (Rapid) Negative (NEGATIVE) Test 12/20/24 23:00 12/20/24 20:43 12/20/24 19:33 Urine Color Light-orange (Yellow) Urine Clarity Ex.turbid (Clear) Urine pH 5.5 (5.0-9.0) Urine Specific [place] 1.017 (1.001-1.035) Urine Protein 1+ (Negative) Urine Ketones Negative (Negative) Urine Blood Negative /uL (Negative) Urine Nitrite Negative (Negative) Urine Bilirubin Negative (Negative) Urine Urobilinogen Normal mg/dL (Negative) Urine Leukocyte Esterase 2+ /uL (Negative) Urine RBC 32 /hpf (0 - 4) Urine WBC Clumps Present /hpf (None Seen) Urine Microscopic WBC 111 /HPF (0-5) Urine Squamous Epithelial Cells Few /hpf (<5) Urine Bacteria None seen /hpf (None Seen) Urine Mucus Few (None Seen) Urine Glucose 2+ mg/dL (Normal) Troponin I High Sensitivity 5 ng/L (</=34) Hemoglobin A1c 9.0 % A1C (<5.7) B-Type Natriuretic Peptide 35.44 pg/mL (0-100) Vitamin B12 Level 334 pg/mL (211-911) Vitamin D 25-Hydroxy 37.9 ng/mL (30.0-100) Folic Acid 9.50 ng/mL (>5.38) Thyroid Stimulating Hormone (TSH) 4.96 uIU/mL (0.55-4.78) Other Laboratory Tests 12/23/24 06:00 Brief Hx & Hospital Course: Final diagnoses: Acutely displaced spiral fracture of the distal 3rd of the left tibia status post fall Left proximal fibular fracture s/p fall Left leg- displaced proximal fibular fracture, displaced spiral fracture of the distal 3rd of the left tibia Acute versus chronic DVT Acute complicated cystitis Hypertension Diabetes mellitus type 2 history of Cecal carcinoma, status post surgical intervention Alzheimer's dementia 84-year-old female who was admitted for a fall which resulted in a left lower extremity tibial and fibular fractures She was also found to have a DVT in the left leg, it was not clear if it is acute or chronic most likely chronic The patient also had underlying dementia She was treated and was seen by Orthopedic surgery for possible surgery however she was deemed too high risk for surgery. A cast was applied to the left leg. The patient needs to go to rehab for SNF for physical therapy and pain management The patient is stable for discharge now For the DVT she was started on Eliquis Condition at Discharge: Stable Final Diagnosis/Problems List Acutely displaced spiral fracture of the distal 3rd of the left tibia status post fall Left proximal fibular fracture s/p fall Left leg- displaced proximal fibular fracture, displaced spiral fracture of the distal 3rd of the left tibia Acute versus chronic DVT Acute complicated cystitis Hypertension Diabetes mellitus type 2 history of Cecal carcinoma, status post surgical intervention Alzheimer's dementia Discharge Disposition: [facility]sp Facility SNF Discharge Will this Physician continue t: No Discharge Instruct/Medications Diet: Cardiac 2g Na,low cholest Activity: No Restrictions, As Tolerated Follow Up/Referral: SNF MD Medications: See Med Rec Scheduled Amlodipine Besylate (Amlodipine Besylate), 5 MG PO DAILY, (Reported) Atorvastatin Calcium (Lipitor), 40 MG PO QPM, (Reported) Atorvastatin Calcium (Atorvastatin Calcium), 1 TAB PO DAILY, (Reported) Donepezil Hydrochloride (Donepezil Hcl), 10 MG PO DAILY, (Reported) Enoxaparin Sodium (Enoxaparin Sodium), 30 MG SC DAILY Insulin Isophane & Reg (Human) (Humulin 70/30 (70-30) 100 Unit/ml), 14 UNITS SC BIDAC, (Reported) Lisinopril (Lisinopril), 10 MG PO DAILY, (Reported) Memantine Hydrochloride (Memantine HCl), 10 MG PO BID, (Reported) Nitrofurantoin (Nitrofurantoin Macrocryst), 1 CAP PO BID, (Reported) Nitrofurantoin (Macrodantin), 1 CAP PO BID Nitrofurantoin Monohyd Macro (Nitrofurantoin Monohydrat), 1 CAP PO BID, (Reported) Nitrofurantoin Monohydrate Mac (Macrobid), 100 MG PO BID Sertraline HCl (Sertraline HCl), 1 TAB PO DAILY, (Reported) Sertraline Hcl (Sertraline Hcl), 50 MG PO DAILY, (Reported) Scheduled PRN Hydrocodone-Acetaminophen (Hydrocodone/Acetaminophen 5-325 mg), 1 TAB PO Q6HP PRN Miscellaneous Medications Amlodipine Besylate (Amlodipine Besylate), TAB PO, (Reported) Discharge Statement: "Patient was advised to return to the ER or call 911 if any headaches, dizziness, shortness of breath, chest pain, abdominal pain, bleeding, fevers, or worsening of medical condition. Patient was counseled about treatment plan, medications, possible side effects, patientverbalized understanding. All questions were answered to the best of my ability. This discharge took greater then 30 minutes in planning, reviewing documentation, counseling the patient, and discussing with other team members." ASSESSMENT ASSESSMENT Assessment Acutely displaced spiral fracture of the distal 3rd of the left tibia status post fall Left proximal fibular fracture s/p fall Left leg- displaced proximal fibular fracture, displaced spiral fracture of the distal 3rd of the left tibia Acute versus chronic DVT Acute complicated cystitis Hypertension Diabetes mellitus type 2 history of Cecal carcinoma, status post surgical intervention Alzheimer's dementia Date of Service: Dec 25, 2024 Billing Provider: CLAUDIA ARCHIBALD MD Common Visit Codes: NOT BILLABLE CLAUDIA ARCHIBALD MD Dec 25, 2024 09:19
[2024-12-26] VITALS (8 sets, daily range): BP systolic 133–157; BP diastolic 54–70; PULSE 60–79; RESP 16–18; TEMP 97.7–98.7; O2SAT 17–98
[2024-12-26] MEDS ORDERED: LOPERAMIDE HCL 2 MG CAP/TAB PO PRN (09:45)
--- NOTE | 2024-12-26 09:47 | DVHPN2 ---
Subjective No new complaints She had 2 loose BMs yesterday Reviewed: Care Plan, H&P, Labs, Medications, Previous Orders, Radiology Changes from previous H/P or p: Changes Objective Vitals Vital Signs Date Time Temp Pulse Resp B/P (MAP) Pulse Ox O2 Delivery O2 Flow Rate FiO2 12/26/24 09:10 97.7 60 17 157/63 (94) 96 97.7 12/25/24 20:30 Room Air* 0 21 Intake/Output Intake and Output 12/26/24 07:00 Intake Total 2090 ml Output Total 2600 ml Balance -510 ml Intake Oral 2040 ml IV Total 50 ml Output Urine Total 2600 ml # Bowel Movements 2 General Appearance: Alert, mild distress HEENT: Atraumatic, PERRLA, EOMI, Mucous membr. moist/pink Neck: Supple Lungs: Clear to auscultation, Normal air movement Cardiovascular: Regular rate, Normal S1, Normal S2 Abdomen: Normal bowel sounds, Soft, No tenderness Neuro: Cranial nerves 3-12 NL Psych/Mental Status: Mental status NL Medications Current Medications Medications Dose Ordered Sig/Gold Route Start Time Stop Time Status Last Admin Dose Admin Acetaminophen 650 mg Q6HP PRN PO 12/20/24 22:00 Amlodipine Besylate 5 mg DAILY PO 12/21/24 10:00 12/26/24 09:07 5 MG Sertraline HCl 50 mg DAILY PO 12/21/24 10:00 12/26/24 09:06 50 MG Pantoprazole Sodium 40 mg DAILY@0600 PO 12/21/24 06:00 12/26/24 05:53 40 MG Atorvastatin Calcium 40 mg HS PO 12/21/24 22:00 12/25/24 21:35 40 MG Donepezil HCl 10 mg DAILY PO 12/21/24 10:00 12/26/24 09:06 10 MG Lisinopril 10 mg DAILY PO 12/21/24 10:00 12/26/24 09:07 10 MG Memantine 10 mg BID PO 12/21/24 10:00 12/26/24 09:05 10 MG Ceftriaxone Sodium 50 ml @ 100 mls/hr DAILY@09 IV 12/21/24 09:00 12/25/24 09:25 100 MLS/HR Morphine Sulfate 2 mg Q3HPRN PRN IV 12/21/24 17:15 12/23/24 15:10 2 MG Acetaminophen/ Hydrocodone Bitart 1 tab Q4HPRN PRN PO 12/21/24 18:45 12/26/24 09:05 1 TAB Diagnostic Test (Pha) 1 strip ACHS 12/22/24 17:00 12/26/24 06:04 1 STRIP Insulin Human Regular ACHS SC 12/22/24 17:00 12/26/24 06:03 3 UNITS Dextrose 50 ml UD PRN IV 12/22/24 13:15 Apixaban 5 mg BID PO 12/24/24 10:00 12/26/24 09:06 5 MG Laboratory Results Laboratory Tests 12/23/24 06:00 Urinalysis Test 12/20/24 23:00 Urine Color Light-orange (Yellow) Urine Clarity Ex.turbid (Clear) Urine pH 5.5 (5.0-9.0) Urine Specific [place] 1.017 (1.001-1.035) Urine Protein 1+ (Negative) H Urine Ketones Negative (Negative) Urine Blood Negative /uL (Negative) Urine Nitrite Negative (Negative) Urine Bilirubin Negative (Negative) Urine Urobilinogen Normal mg/dL (Negative) Urine Leukocyte Esterase 2+ /uL (Negative) Urine RBC 32 /hpf (0 - 4) Urine WBC Clumps Present /hpf (None Seen) Urine Microscopic WBC 111 /HPF (0-5) H Urine Squamous Epithelial Cells Few /hpf (<5) Urine Bacteria None seen /hpf (None Seen) Urine Mucus Few (None Seen) Urine Glucose 2+ mg/dL (Normal) H Microbiology Microbiology Date/Time Source Procedure Growth Status 12/21/24 00:10 Nose MRSA Screen - Final Complete 12/20/24 23:00 Voided Urine Urine Culture - Final Complete Assessment/Plan Assessment/Plan # Acutely displaced spiral fracture of the distal 3rd of the left tibia status post fall # Left proximal fibular fracture # s/p fall Left leg- displaced proximal fibular fracture, displaced spiral fracture of the distal 3rd of the left tibia Acute versus chronic DVT Acute complicated cystitis Hypertension Diabetes mellitus type 2 history of Cecal carcinoma, status post surgical intervention Alzheimer's dementia PLAN: The patient is scheduled for surgery for tomorrow NPO after midnight Rocephin IV for UTI Give Lovenox subcutaneously q.12 hours, hold tonight for surgery tomorrow IV fluids normal saline P.o. medications for hypertension Namenda and Aricept for dementia Full code The patient will likely need to go to a alf facility for rehab postoperatively The rest of the management will depend on the hospital course 12/24/2024: Surgery was canceled due to the patient being high risk Conservative treatment is recommended by Orthopedic surgery A cast was advised and discharged home for outpatient follow up in 6 weeks DVT of the left leg: Lovenox was given x2 doses, start the patient on p.o. anticoagulant, Eliquis Discussed with the son, he understands the plan, he says the patient has diarrhea since she received meropenem a while ago and he says she is still having it right now Reported diarrhea by son: The patient does not have diarrhea right now, we will watch Discontinue the IV fluids Resume the diet Nonweightbearing on left lower extremity per ortho recommendations Discharge planning to SNF [facility] catheter in place 12/25/2024: PHYSICAL THERAPY EVALUATION ARRANGE SNF FOR REHAB DISCHARGE TO SNF ONCE A BED IS AVAILABLE 12/26/24: Her son says she has chronic diarrhea She had 2 loose BMs yesterday, no diarrhea No BMs today He says he cannot take care of her at home and wants her to go to SNF or rehab The patient is mostly bed ridden SNF was declined by her insurance, she doesn't qualify Order imodium prn Send home with home health We also discussed hospice with the son, he declined it Plan discussed with: Patient My Orders Orders - CLAUDIA ARCHIBALD MD Procedure Category Date Status Time * Fuse Cutter CONS 12/26/24 Transmitted Consult * Fuse Cutter CONS 12/26/24 Transmitted Consult Date of Service: Dec 26, 2024 Billing Provider: CLAUDIA ARCHIBALD MD Common Visit Codes: NOT BILLABLE CLAUDIA ARCHIBALD MD Dec 26, 2024 09:47
[2024-12-27] VITALS (8 sets, daily range): BP systolic 135–153; BP diastolic 62–71; PULSE 61–67; RESP 16–18; TEMP 97.8–98.6; O2SAT 96–98
--- NOTE | 2024-12-27 17:23 | DVHPN2 ---
Subjective No new complaints No diarrhea Reviewed: Care Plan, H&P, Labs, Medications, Previous Orders, Radiology Changes from previous H/P or p: Changes Objective Vitals Vital Signs Date Time Temp Pulse Resp B/P (MAP) Pulse Ox O2 Delivery O2 Flow Rate FiO2 12/27/24 17:00 98.2 61 16 153/63 (93) 96 98.2 12/27/24 08:05 Room Air* 0 21 Intake/Output Intake and Output 12/27/24 07:00 Intake Total 1600 ml Output Total 1900 ml Balance -300 ml Intake Oral 1600 ml Output Urine Total 1900 ml General Appearance: Alert, mild distress HEENT: Atraumatic, PERRLA, EOMI, Mucous membr. moist/pink Neck: Supple Lungs: Clear to auscultation, Normal air movement Cardiovascular: Regular rate, Normal S1, Normal S2 Abdomen: Normal bowel sounds, Soft, No tenderness Neuro: Cranial nerves 3-12 NL Psych/Mental Status: Mental status NL Medications Current Medications Medications Dose Ordered Sig/Gold Route Start Time Stop Time Status Last Admin Dose Admin Acetaminophen 650 mg Q6HP PRN PO 12/20/24 22:00 Amlodipine Besylate 5 mg DAILY PO 12/21/24 10:00 12/27/24 09:53 5 MG Sertraline HCl 50 mg DAILY PO 12/21/24 10:00 12/27/24 09:53 50 MG Pantoprazole Sodium 40 mg DAILY@0600 PO 12/21/24 06:00 12/27/24 05:57 40 MG Atorvastatin Calcium 40 mg HS PO 12/21/24 22:00 12/26/24 21:43 40 MG Donepezil HCl 10 mg DAILY PO 12/21/24 10:00 12/27/24 09:53 10 MG Lisinopril 10 mg DAILY PO 12/21/24 10:00 12/27/24 09:54 10 MG Memantine 10 mg BID PO 12/21/24 10:00 12/27/24 09:53 10 MG Ceftriaxone Sodium 50 ml @ 100 mls/hr DAILY@09 IV 12/21/24 09:00 12/27/24 09:52 100 MLS/HR Morphine Sulfate 2 mg Q3HPRN PRN IV 12/21/24 17:15 12/23/24 15:10 2 MG Acetaminophen/ Hydrocodone Bitart 1 tab Q4HPRN PRN PO 12/21/24 18:45 12/26/24 09:05 1 TAB Diagnostic Test (Pha) 1 strip ACHS 12/22/24 17:00 12/27/24 11:58 1 STRIP Insulin Human Regular ACHS SC 12/22/24 17:00 12/27/24 12:12 6 UNITS Dextrose 50 ml UD PRN IV 12/22/24 13:15 Apixaban 5 mg BID PO 12/24/24 10:00 12/27/24 09:53 5 MG Loperamide HCl 2 mg PRN PRN PO 12/26/24 09:45 Laboratory Results Laboratory Tests 12/23/24 06:00 Urinalysis Test 12/20/24 23:00 Urine Color Light-orange (Yellow) Urine Clarity Ex.turbid (Clear) Urine pH 5.5 (5.0-9.0) Urine Specific [place] 1.017 (1.001-1.035) Urine Protein 1+ (Negative) H Urine Ketones Negative (Negative) Urine Blood Negative /uL (Negative) Urine Nitrite Negative (Negative) Urine Bilirubin Negative (Negative) Urine Urobilinogen Normal mg/dL (Negative) Urine Leukocyte Esterase 2+ /uL (Negative) Urine RBC 32 /hpf (0 - 4) Urine WBC Clumps Present /hpf (None Seen) Urine Microscopic WBC 111 /HPF (0-5) H Urine Squamous Epithelial Cells Few /hpf (<5) Urine Bacteria None seen /hpf (None Seen) Urine Mucus Few (None Seen) Urine Glucose 2+ mg/dL (Normal) H Microbiology Microbiology Date/Time Source Procedure Growth Status 12/21/24 00:10 Nose MRSA Screen - Final Complete 12/20/24 23:00 Voided Urine Urine Culture - Final Complete Assessment/Plan Assessment/Plan # Acutely displaced spiral fracture of the distal 3rd of the left tibia status post fall # Left proximal fibular fracture # s/p fall Left leg- displaced proximal fibular fracture, displaced spiral fracture of the distal 3rd of the left tibia Acute versus chronic DVT Acute complicated cystitis Hypertension Diabetes mellitus type 2 history of Cecal carcinoma, status post surgical intervention Alzheimer's dementia PLAN: The patient is scheduled for surgery for tomorrow NPO after midnight Rocephin IV for UTI Give Lovenox subcutaneously q.12 hours, hold tonight for surgery tomorrow IV fluids normal saline P.o. medications for hypertension Namenda and Aricept for dementia Full code The patient will likely need to go to a halfway facility for rehab postoperatively The rest of the management will depend on the hospital course 12/24/2024: Surgery was canceled due to the patient being high risk Conservative treatment is recommended by Orthopedic surgery A cast was advised and discharged home for outpatient follow up in 6 weeks DVT of the left leg: Lovenox was given x2 doses, start the patient on p.o. anticoagulant, Eliquis Discussed with the son, he understands the plan, he says the patient has diarrhea since she received meropenem a while ago and he says she is still having it right now Reported diarrhea by son: The patient does not have diarrhea right now, we will watch Discontinue the IV fluids Resume the diet Nonweightbearing on left lower extremity per ortho recommendations Discharge planning to SNF [facility] catheter in place 12/25/2024: PHYSICAL THERAPY EVALUATION ARRANGE SNF FOR REHAB DISCHARGE TO SNF ONCE A BED IS AVAILABLE 12/26/24: Her son says she has chronic diarrhea She had 2 loose BMs yesterday, no diarrhea No BMs today He says he cannot take care of her at home and wants her to go to SNF or rehab The patient is mostly bed ridden SNF was declined by her insurance, she doesn't qualify Order imodium prn Send home with home health We also discussed hospice with the son, he declined it 12/27/24: Continue current regimen, No diarrhea Son filed an appeal for discharge We discussed the discharge plan with the son over the phone yesterday SNF was denied by her insurance due to the fact that patient is non-ambulatory and cannot participate in physical therapy Plan discussed with: Patient, Son Date of Service: Dec 27, 2024 Billing Provider: CLAUDIA ARCHIBALD MD Common Visit Codes: NOT BILLABLE CLAUDIA ARCHIBALD MD Dec 27, 2024 17:23
[2024-12-28] VITALS (9 sets, daily range): BP systolic 140–159; BP diastolic 62–73; PULSE 54–63; RESP 16–17; TEMP 96.9–98.5; O2SAT 95–100
--- NOTE | 2024-12-28 10:31 | DVHPN2 ---
Subjective No new complaints No change Reviewed: Care Plan, H&P, Labs, Medications, Previous Orders, Radiology Changes from previous H/P or p: No Changes Objective Vitals Vital Signs Date Time Temp Pulse Resp B/P (MAP) Pulse Ox O2 Delivery O2 Flow Rate FiO2 12/28/24 09:09 96.9 57 17 151/65 (93) 100 96.9 12/27/24 20:00 Room Air* 0 21 Intake/Output Intake and Output 12/28/24 06:59 Intake Total 1555 ml Output Total 1525 ml Balance 30 ml Intake Oral 1555 ml Output Urine Total 1525 ml General Appearance: Alert, mild distress HEENT: Atraumatic, PERRLA, EOMI, Mucous membr. moist/pink Neck: Supple Lungs: Clear to auscultation, Normal air movement Cardiovascular: Regular rate, Normal S1, Normal S2 Abdomen: Normal bowel sounds, Soft, No tenderness Neuro: Cranial nerves 3-12 NL Psych/Mental Status: Mental status NL Medications Current Medications Medications Dose Ordered Sig/Gold Route Start Time Stop Time Status Last Admin Dose Admin Acetaminophen 650 mg Q6HP PRN PO 12/20/24 22:00 Amlodipine Besylate 5 mg DAILY PO 12/21/24 10:00 12/27/24 09:53 5 MG Sertraline HCl 50 mg DAILY PO 12/21/24 10:00 12/27/24 09:53 50 MG Pantoprazole Sodium 40 mg DAILY@0600 PO 12/21/24 06:00 12/28/24 05:28 40 MG Atorvastatin Calcium 40 mg HS PO 12/21/24 22:00 12/27/24 21:12 40 MG Donepezil HCl 10 mg DAILY PO 12/21/24 10:00 12/27/24 09:53 10 MG Lisinopril 10 mg DAILY PO 12/21/24 10:00 12/27/24 09:54 10 MG Memantine 10 mg BID PO 12/21/24 10:00 12/27/24 21:12 10 MG Morphine Sulfate 2 mg Q3HPRN PRN IV 12/21/24 17:15 12/23/24 15:10 2 MG Acetaminophen/ Hydrocodone Bitart 1 tab Q4HPRN PRN PO 12/21/24 18:45 12/28/24 05:28 1 TAB Diagnostic Test (Pha) 1 strip ACHS 12/22/24 17:00 12/28/24 06:14 1 STRIP Insulin Human Regular ACHS SC 12/22/24 17:00 12/28/24 06:13 3 UNITS Dextrose 50 ml UD PRN IV 12/22/24 13:15 Apixaban 5 mg BID PO 12/24/24 10:00 12/27/24 21:12 5 MG Loperamide HCl 2 mg PRN PRN PO 12/26/24 09:45 Laboratory Results Laboratory Tests 12/23/24 06:00 Urinalysis Test 12/20/24 23:00 Urine Color Light-orange (Yellow) Urine Clarity Ex.turbid (Clear) Urine pH 5.5 (5.0-9.0) Urine Specific [place] 1.017 (1.001-1.035) Urine Protein 1+ (Negative) H Urine Ketones Negative (Negative) Urine Blood Negative /uL (Negative) Urine Nitrite Negative (Negative) Urine Bilirubin Negative (Negative) Urine Urobilinogen Normal mg/dL (Negative) Urine Leukocyte Esterase 2+ /uL (Negative) Urine RBC 32 /hpf (0 - 4) Urine WBC Clumps Present /hpf (None Seen) Urine Microscopic WBC 111 /HPF (0-5) H Urine Squamous Epithelial Cells Few /hpf (<5) Urine Bacteria None seen /hpf (None Seen) Urine Mucus Few (None Seen) Urine Glucose 2+ mg/dL (Normal) H Microbiology Microbiology Date/Time Source Procedure Growth Status 12/21/24 00:10 Nose MRSA Screen - Final Complete 12/20/24 23:00 Voided Urine Urine Culture - Final Complete Assessment/Plan Assessment/Plan # Acutely displaced spiral fracture of the distal 3rd of the left tibia status post fall # Left proximal fibular fracture # s/p fall Left leg- displaced proximal fibular fracture, displaced spiral fracture of the distal 3rd of the left tibia Acute versus chronic DVT Acute complicated cystitis Hypertension Diabetes mellitus type 2 history of Cecal carcinoma, status post surgical intervention Alzheimer's dementia PLAN: The patient is scheduled for surgery for tomorrow NPO after midnight Rocephin IV for UTI Give Lovenox subcutaneously q.12 hours, hold tonight for surgery tomorrow IV fluids normal saline P.o. medications for hypertension Namenda and Aricept for dementia Full code The patient will likely need to go to a residential facility for rehab postoperatively The rest of the management will depend on the hospital course 12/24/2024: Surgery was canceled due to the patient being high risk Conservative treatment is recommended by Orthopedic surgery A cast was advised and discharged home for outpatient follow up in 6 weeks DVT of the left leg: Lovenox was given x2 doses, start the patient on p.o. anticoagulant, Eliquis Discussed with the son, he understands the plan, he says the patient has diarrhea since she received meropenem a while ago and he says she is still having it right now Reported diarrhea by son: The patient does not have diarrhea right now, we will watch Discontinue the IV fluids Resume the diet Nonweightbearing on left lower extremity per ortho recommendations Discharge planning to SNF [facility] catheter in place 12/25/2024: PHYSICAL THERAPY EVALUATION ARRANGE SNF FOR REHAB DISCHARGE TO SNF ONCE A BED IS AVAILABLE 12/26/24: Her son says she has chronic diarrhea She had 2 loose BMs yesterday, no diarrhea No BMs today He says he cannot take care of her at home and wants her to go to SNF or rehab The patient is mostly bed ridden SNF was declined by her insurance, she doesn't qualify Order imodium prn Send home with home health We also discussed hospice with the son, he declined it 12/27/24: Continue current regimen, No diarrhea Son filed an appeal for discharge We discussed the discharge plan with the son over the phone yesterday SNF was denied by her insurance due to the fact that patient is non-ambulatory and cannot participate in physical therapy 12/28/2024: No change Awaiting the appeal decision Asymptomatic Comfortable Discharge planning once the appeal decision is back Plan discussed with: Patient, Other Date of Service: Dec 28, 2024 Billing Provider: CLAUDIA ARCHIBALD MD Common Visit Codes: NOT BILLABLE CLAUDIA ARCHIBALD MD Dec 28, 2024 10:31
[2024-12-29] VITALS (7 sets, daily range): BP systolic 117–146; BP diastolic 57–64; PULSE 55–71; RESP 16–18; TEMP 36.9; O2SAT 94–97
== END 2024-12-29 18:17 | disposition home health service (06) | DRG 563 ==
LOC: EDBD 18:50 → ER 18:50 → EDUNIT# 18:50 → OVERFLOW 21:47 → TELE-EAST 23:15
PROVIDERS: ADMIT Internal Medicine Geriatric Medicine; ATTEND Internal Medicine Geriatric Medicine
DX: S82.242A Displaced spiral fracture of shaft of left tibia, initial encounter for closed fracture (principal); N30.00 Acute cystitis without hematuria; I82.432 Acute embolism and thrombosis of left popliteal vein; S82.442A Displaced spiral fracture of shaft of left fibula, initial encounter for closed fracture; I10 Essential (primary) hypertension; Z20.822 Contact with and (suspected) exposure to COVID-19; E11.649 Type 2 diabetes mellitus with hypoglycemia without coma; G30.9 Alzheimer's disease, unspecified; E78.5 Hyperlipidemia, unspecified; Z96.652 Presence of left artificial knee joint; F02.80 Dementia in other diseases classified elsewhere, unspecified severity, without behavioral disturbance, psychotic disturbance, mood disturbance, and anxiety; Z85.038 Personal history of other malignant neoplasm of large intestine; Z90.710 Acquired absence of both cervix and uterus; W08.XXXA Fall from other furniture, initial encounter; Y92.89 Other specified places as the place of occurrence of the external cause; Z53.9 Procedure and treatment not carried out, unspecified reason; Z79.01 Long term (current) use of anticoagulants; Z79.4 Long term (current) use of insulin; Y93.89 Activity, other specified; Y99.8 Other external cause status; Z79.899 Other long term (current) drug therapy; Z79.02 Long term (current) use of antithrombotics/antiplatelets
CPT/HCPCS: 36415; 70450; 71045; 72125; 73590; 74176; 80048; 80053; 81001; 82306; 82607; 82746; 82962; 83036; 83605; 83735; 83880; 84443; 84484; 85025; 86850; 86900; 86901; 87081; 87086; 87426; 93005; 93306; 93971; 96361; 96365; 96366; 96367; 96372; 96375; 97110; 97163; 97530; G0378; J1815